=== PATIENT | female | born 1975 ===

== ENCOUNTER 2017-09-19 03:35 | Inpatient (IN) ==
[2017-09-19] MEDS ORDERED: POTASSIUM CHLORIDE INJ 30 MEQ in SODIUM CHLORIDE 0.45% 1,000 ML IV SCH (04:30)
[2017-09-19] MEDS ORDERED: SODIUM CHLORIDE 0.9% 500 ML IV STA (04:30)
[2017-09-19 05:09] LABS: Calcium 6.8 MG/DL (8.5-10.1); Magnesium 2.6 MG/DL (1.8-2.4); Osmolality,Calculated 291.1 MOS/KG (273-304)
[2017-09-19 05:11] LABS: Potassium 2.4 MMOL/L (3.5-5.1)
[2017-09-19] MEDS ORDERED: NOREPINEPHRINE 4 MG/4 ML VIAL IV ONE (05:24)
[2017-09-19] MEDS: NOREPINEPHRINE 8 MG in SODIUM CHLORIDE 0.9% 242 ML IV SCH (05:33)
[2017-09-19] MEDS ORDERED: POTASSIUM CHLORIDE 20 MEQ TABLET PO ONE ×3 (08:59→14:19)
[2017-09-19] MEDS ORDERED: CALCIUM GLUCONATE 2,000 MG in SODIUM CHLORIDE 0.9% 100 ML IV ONE (08:59)
[2017-09-19] MEDS ORDERED: ONDANSETRON 4 MG/2 ML VIAL IV PRN (08:59)
[2017-09-19] MEDS ORDERED: cefTRIAXone 1,000 MG in SYRINGE 1 EACH IV SCH (08:59)
[2017-09-19] MEDS ORDERED: GLUCAGON 1 MG VIAL IM PRN (08:59)
[2017-09-19] MEDS ORDERED: MORPHINE 2 MG/1 ML SYRINGE IV PRN (08:59)
[2017-09-19] MEDS ORDERED: DEXTROSE 50% 25 GM/50 ML VIAL IV PRN (08:59)
[2017-09-19 09:19] LABS: ABG HCO3 6.7 MMOL/L (20-26); ABG Oxygen Saturation 95.9 % (95-100); ABG TCO2 4.1 MMOL/L (23-27)
[2017-09-19 09:25] LABS: ABG PCO2 14.5 MM HG (35-48); ABG PH 7.066 (7.35-7.45)
[2017-09-19] MEDS ORDERED: MORPHINE 10 MG/1 ML VIAL IV PRN (09:30)
[2017-09-19] MEDS: DOCUSATE SODIUM 100 MG CAPSULE PO SCH ×2 (09:48→21:13)
[2017-09-19 10:00] LABS: Basophils # 0.2 10*3/uL (0.0-0.2); Basophils % 1.2 % (0.0-0.8); Eosinophils % 0.2 % (0.00-10.9); Hematocrit 25.4 VOL% (35.7-47.0); Hemoglobin 8.7 GM/DL (12.0-16.0); Immature Granulocytes % 0.8 %; Immature Granulocytes Absolute 0.14 #; Lymphocytes # 1.1 10*3/uL (1.4-4.0); Lymphocytes % 5.8 % (21.3-54.2); Mean Corpuscular HGB Conc 34.3 GM/DL (32-36); Mean Corpuscular Hemoglobin 27 PG (27-34); Mean Corpuscular Volume 79.4 FL (87-102); Mean Platelet Volume 10.9 FL (9.6-12.0); Monocytes # 0.7 10*3/uL (0.11-0.8); Monocytes % 3.9 % (1.7-12.7); NRBC # 0.04 10*3/uL; Neutrophils # 16.4 10*3/uL (1.4-7.4); Neutrophils % 88.1 % (38.7-73.9); Platelet Count 198 T/CUMM (130-400); Red Cell Distribution Width 18.9 % (9.3-17.3); White Blood Count 18.6 T/CUMM (4-12)
[2017-09-19] MEDS: PANTOPRAZOLE 40 MG VIAL IV SCH (10:10)
[2017-09-19 10:27] LABS: ABG Base Excess -23.2 MMOL/L (-2.5-2.5); ABG HCO3 5.7 MMOL/L (20-26); ABG Oxygen Saturation 52.9 % (95-100); ABG PCO2 21.8 MM HG (35-48); ABG PO2 48.6 MM HG (80-95); ABG TCO2 6.4 MMOL/L (23-27)
[2017-09-19] MEDS: ENOXAPARIN 30 MG/0.3 ML SYRINGE SUBCUT SCH (10:27)
[2017-09-19 10:29] LABS: ABG PH 7.038 (7.35-7.45)
[2017-09-19 10:30] LABS: Lactic Acid 4.2 MMOL/L (0.4-2.0)
[2017-09-19 10:31] LABS: Alanine Aminotransferase 19 U/L (13-56); Alkaline Phosphatase 261 U/L (45-117); Aspartate Amino Transferase 41 U/L (0-37); Bilirubin,Indirect 0.3 MG/DL (0.0-1.0); CKMB % 6.1 %; Troponin I Only < 0.015 NG/ML (0.00-0.045)
[2017-09-19 10:44] LABS: Ammonia 56 UMOL/L (11-32)
[2017-09-19] MEDS: cefTRIAXone 1,000 MG in SYRINGE 1 EACH IV SCH (12:25)
[2017-09-19] MEDS: INSULIN REGULAR 100 UNIT/ML SUBCUT SCH ×2 (12:25→19:23)
[2017-09-19 14:05] LABS: Magnesium 2.3 MG/DL (1.8-2.4); Osmolality,Calculated 291.2 MOS/KG (273-304)
[2017-09-19 14:15] LABS: Potassium 2.4 MMOL/L (3.5-5.1)
[2017-09-19] MEDS ORDERED: EPOETIN ALFA 10,000 UNIT/1 ML VIAL IV SCH (17:00)
[2017-09-19] MEDS: POTASSIUM CHLORIDE RIDER 20 MEQ in PREMIX 1 EACH IV PRN ×2 (20:35→22:15)
[2017-09-20] MEDS: POTASSIUM CHLORIDE RIDER 20 MEQ in PREMIX 1 EACH IV PRN ×3 (00:20→08:35)
[2017-09-20] MEDS: INSULIN REGULAR 100 UNIT/ML SUBCUT SCH ×4 (00:24→18:23)
[2017-09-20] MEDS: NOREPINEPHRINE 8 MG in SODIUM CHLORIDE 0.9% 242 ML IV SCH ×2 (00:50→15:01)
[2017-09-20 03:44] LABS: ABG Base Excess -2.6 MMOL/L (-2.5-2.5); ABG HCO3 22.6 MMOL/L (20-26); ABG Oxygen Saturation 89.7 % (95-100); ABG PCO2 40.8 MM HG (35-48); ABG PH 7.362 (7.35-7.45); ABG PO2 69.2 MM HG (80-95); ABG TCO2 23.9 MMOL/L (23-27); Allen Test Positive
[2017-09-20 04:52] LABS: Basophils # 0.2 10*3/uL (0.0-0.2); Eosinophils # 0.2 10*3/uL (0.0-0.87); Eosinophils % 1.1 % (0.00-10.9); Hematocrit 21.3 VOL% (35.7-47.0); Hemoglobin 7.2 GM/DL (12.0-16.0); Immature Granulocytes % 0.8 %; Immature Granulocytes Absolute 0.12 #; Lymphocytes # 1.7 10*3/uL (1.4-4.0); Lymphocytes % 11.9 % (21.3-54.2); Mean Corpuscular HGB Conc 33.8 GM/DL (32-36); Mean Corpuscular Hemoglobin 27 PG (27-34); Mean Corpuscular Volume 79.8 FL (87-102); Mean Platelet Volume 10.3 FL (9.6-12.0); Monocytes # 1.1 10*3/uL (0.11-0.8); Monocytes % 7.4 % (1.7-12.7); NRBC # 0.14 10*3/uL; Neutrophils # 11.2 10*3/uL (1.4-7.4); Neutrophils % 77.8 % (38.7-73.9); Platelet Count 180 T/CUMM (130-400); Red Blood Count 2.67 MC/CUMM (3.8-5.5); Red Cell Distribution Width 18.8 % (9.3-17.3); White Blood Count 14.4 T/CUMM (4-12)
[2017-09-20 05:15] LABS: Calcium 7.5 MG/DL (8.5-10.1); Osmolality,Calculated 281.4 MOS/KG (273-304); Potassium 3.4 MMOL/L (3.5-5.1)
[2017-09-20 05:25] LABS: Albumin 1.8 G/DL (3.4-5.0); Calcium 7.6 MG/DL (8.5-10.1); Osmolality,Calculated 280.4 MOS/KG (273-304); Potassium 3.5 MMOL/L (3.5-5.1)
[2017-09-20] MEDS: DOCUSATE SODIUM 100 MG CAPSULE PO SCH ×2 (08:34→21:25)
[2017-09-20] MEDS: ENOXAPARIN 30 MG/0.3 ML SYRINGE SUBCUT SCH (08:35)
[2017-09-20] MEDS: PANTOPRAZOLE 40 MG VIAL IV SCH (08:35)
[2017-09-20] MEDS ORDERED: SODIUM CHLORIDE 0.9% 1,000 ML IV PRN (10:31)
[2017-09-20 11:35] LABS: Hepatitis A Ab IgM Quant 0.11 Index; Hepatitis A Ab IgM Result Negative (Negative); Hepatitis B Core IgM Quant 0.11 Index; Hepatitis B Core IgM Result Negative (Negative); Hepatitis B Surface Ag Quant < 0.10 Index; Hepatitis B Surface Ag Result Negative (Negative); Hepatitis C Virus Ab Quant 0.22 Index; Hepatitis C Virus Ab Result Negative (Negative)
[2017-09-20] MEDS: POTASSIUM CHLORIDE RIDER 20 MEQ in PREMIX 1 EACH IV SCH (11:53)
[2017-09-20] MEDS: cefTRIAXone 1,000 MG in SYRINGE 1 EACH IV SCH (12:56)
[2017-09-20] MEDS ORDERED: SKIN HEALING OINT (AQUAPHOR) 50 GM TUBE TOP PRN (13:09)
[2017-09-21] MEDS: INSULIN REGULAR 100 UNIT/ML SUBCUT SCH ×4 (02:04→17:50)
[2017-09-21 05:43] LABS: Basophils # 0.3 10*3/uL (0.0-0.2); Basophils % 2.8 % (0.0-0.8); Eosinophils # 0.5 10*3/uL (0.0-0.87); Eosinophils % 5.3 % (0.00-10.9); Hematocrit 34.1 VOL% (35.7-47.0); Hemoglobin 11.2 GM/DL (12.0-16.0); Immature Granulocytes % 1.2 %; Immature Granulocytes Absolute 0.11 #; Lymphocytes # 1.8 10*3/uL (1.4-4.0); Lymphocytes % 19.5 % (21.3-54.2); Mean Corpuscular HGB Conc 32.8 GM/DL (32-36); Mean Corpuscular Hemoglobin 27 PG (27-34); Mean Corpuscular Volume 80.8 FL (87-102); Mean Platelet Volume 9.8 FL (9.6-12.0); Monocytes # 0.6 10*3/uL (0.11-0.8); Monocytes % 6.1 % (1.7-12.7); NRBC # 0.16 10*3/uL; Neutrophils # 6.1 10*3/uL (1.4-7.4); Neutrophils % 65.1 % (38.7-73.9); Platelet Count 155 T/CUMM (130-400); Red Blood Count 4.22 MC/CUMM (3.8-5.5); Red Cell Distribution Width 18.2 % (9.3-17.3); White Blood Count 9.3 T/CUMM (4-12)
[2017-09-21] MEDS: NOREPINEPHRINE 8 MG in SODIUM CHLORIDE 0.9% 242 ML IV SCH ×2 (06:14→12:34)
[2017-09-21 06:28] LABS: Calcium 8.1 MG/DL (8.5-10.1); Osmolality,Calculated 270.1 MOS/KG (273-304); Potassium 3.5 MMOL/L (3.5-5.1)
[2017-09-21 06:59] LABS: Band Neutrophils 1 % (0-10); Eosinophils 6 % (0-10); Lymphocytes 17 % (20-55); Nucleated Red Blood Cells 2 (0-5); Segmented Neutrophils 65 % (50-85); Total Cells Counted 100
[2017-09-21 07:00] LABS: Macrocytosis Slight; Platelet Estimate Normal; Polychromasia Few
[2017-09-21] MEDS: PANTOPRAZOLE 40 MG VIAL IV SCH (08:29)
[2017-09-21] MEDS: DOCUSATE SODIUM 100 MG CAPSULE PO SCH (08:37)
[2017-09-21] MEDS: ENOXAPARIN 30 MG/0.3 ML SYRINGE SUBCUT SCH (08:37)
[2017-09-21] MEDS: cefTRIAXone 1,000 MG in SYRINGE 1 EACH IV SCH (12:30)
[2017-09-21] MEDS ORDERED: EPOETIN ALFA 10,000 UNIT/1 ML VIAL IV ONE (13:00)
[2017-09-22] MEDS: DOCUSATE SODIUM 100 MG CAPSULE PO SCH ×3 (01:04→20:22)
[2017-09-22] MEDS: INSULIN REGULAR 100 UNIT/ML SUBCUT SCH ×4 (02:04→18:40)
[2017-09-22 06:02] LABS: Basophils # 0.2 10*3/uL (0.0-0.2); Basophils % 2.7 % (0.0-0.8); Eosinophils # 0.6 10*3/uL (0.0-0.87); Eosinophils % 7.4 % (0.00-10.9); Hematocrit 32.6 VOL% (35.7-47.0); Hemoglobin 10.9 GM/DL (12.0-16.0); Immature Granulocytes Absolute 0.15 #; Lymphocytes # 2.1 10*3/uL (1.4-4.0); Lymphocytes % 26.9 % (21.3-54.2); Mean Corpuscular HGB Conc 33.4 GM/DL (32-36); Mean Corpuscular Hemoglobin 27 PG (27-34); Mean Corpuscular Volume 80.5 FL (87-102); Mean Platelet Volume 10.4 FL (9.6-12.0); Monocytes # 0.7 10*3/uL (0.11-0.8); Monocytes % 8.6 % (1.7-12.7); NRBC # 0.26 10*3/uL; Neutrophils % 52.4 % (38.7-73.9); Platelet Count 133 T/CUMM (130-400); Red Blood Count 4.05 MC/CUMM (3.8-5.5); Red Cell Distribution Width 18.3 % (9.3-17.3); White Blood Count 7.7 T/CUMM (4-12)
[2017-09-22 06:24] LABS: Calcium 8.1 MG/DL (8.5-10.1); Osmolality,Calculated 271.8 MOS/KG (273-304)
[2017-09-22] MEDS: NOREPINEPHRINE 8 MG in SODIUM CHLORIDE 0.9% 242 ML IV SCH (06:32)
[2017-09-22 06:42] LABS: Band Neutrophils 1 % (0-10); Eosinophils 6 % (0-10); Giant Platelets Few; Hypochromasia 1+; Lymphocytes 19 % (20-55); Macrocytosis Slight; Ovalocytes Slight; Platelet Estimate Normal; Segmented Neutrophils 65 % (50-85); Total Cells Counted 100
[2017-09-22 06:43] LABS: Polychromasia Slight
[2017-09-22] MEDS: POTASSIUM CHLORIDE RIDER 20 MEQ in PREMIX 1 EACH IV PRN ×2 (08:17→10:27)
[2017-09-22] MEDS: PANTOPRAZOLE 40 MG VIAL IV SCH (08:17)
[2017-09-22] MEDS: ENOXAPARIN 30 MG/0.3 ML SYRINGE SUBCUT SCH (10:28)
[2017-09-22] MEDS: cefTRIAXone 1,000 MG in SYRINGE 1 EACH IV SCH (12:32)
[2017-09-23] MEDS: INSULIN REGULAR 100 UNIT/ML SUBCUT SCH ×5 (00:02→20:25)
[2017-09-23 05:13] LABS: Basophils # 0.2 10*3/uL (0.0-0.2); Basophils % 2.6 % (0.0-0.8); Eosinophils # 0.5 10*3/uL (0.0-0.87); Eosinophils % 7.5 % (0.00-10.9); Hemoglobin 9.6 GM/DL (12.0-16.0); Immature Granulocytes % 2.7 %; Immature Granulocytes Absolute 0.17 #; Lymphocytes % 32.2 % (21.3-54.2); Mean Corpuscular Hemoglobin 27 PG (27-34); Mean Corpuscular Volume 83.6 FL (87-102); Mean Platelet Volume 9.8 FL (9.6-12.0); Monocytes # 0.5 10*3/uL (0.11-0.8); Monocytes % 8.6 % (1.7-12.7); Neutrophils # 2.9 10*3/uL (1.4-7.4); Neutrophils % 46.4 % (38.7-73.9); Red Blood Count 3.59 MC/CUMM (3.8-5.5); Red Cell Distribution Width 18.2 % (9.3-17.3); White Blood Count 6.3 T/CUMM (4-12)
[2017-09-23 05:24] LABS: Platelet Count 109 T/CUMM (130-400)
[2017-09-23 05:38] LABS: Calcium 7.7 MG/DL (8.5-10.1); Osmolality,Calculated 272.8 MOS/KG (273-304); Potassium 3.1 MMOL/L (3.5-5.1)
[2017-09-23 05:50] LABS: Eosinophils 4 % (0-10); Lymphocytes 35 % (20-55); Nucleated Red Blood Cells 3 (0-5); Segmented Neutrophils 56 % (50-85); Total Cells Counted 100
[2017-09-23 05:51] LABS: Hypochromasia 1+; Platelet Estimate Decreased; Polychromasia Few; Target Cells Few
[2017-09-23] MEDS: NOREPINEPHRINE 8 MG in SODIUM CHLORIDE 0.9% 242 ML IV SCH (05:52)
[2017-09-23] MEDS: POTASSIUM CHLORIDE RIDER 20 MEQ in PREMIX 1 EACH IV PRN ×2 (06:00→08:00)
[2017-09-23] MEDS: PANTOPRAZOLE 40 MG VIAL IV SCH (09:45)
[2017-09-23] MEDS: DOCUSATE SODIUM 100 MG CAPSULE PO SCH ×2 (09:58→20:25)
[2017-09-23] MEDS: ENOXAPARIN 30 MG/0.3 ML SYRINGE SUBCUT SCH (09:58)
[2017-09-23] MEDS: cefTRIAXone 1,000 MG in SYRINGE 1 EACH IV SCH (13:03)
[2017-09-23] MEDS: INSULIN GLARGINE 100 UNIT/ML SUBCUT SCH (20:25)
[2017-09-23] MEDS: CALCIUM ACETATE 667 MG CAPSULE PO SCH (20:49)
[2017-09-24 06:12] LABS: Basophils # 0.2 10*3/uL (0.0-0.2); Basophils % 2.5 % (0.0-0.8); Eosinophils # 0.5 10*3/uL (0.0-0.87); Eosinophils % 7.1 % (0.00-10.9); Hematocrit 29.3 VOL% (35.7-47.0); Hemoglobin 9.2 GM/DL (12.0-16.0); Immature Granulocytes % 2.2 %; Immature Granulocytes Absolute 0.14 #; Lymphocytes # 2.3 10*3/uL (1.4-4.0); Lymphocytes % 35.1 % (21.3-54.2); Mean Corpuscular HGB Conc 31.4 GM/DL (32-36); Mean Corpuscular Hemoglobin 27 PG (27-34); Mean Corpuscular Volume 85.4 FL (87-102); Mean Platelet Volume 10.5 FL (9.6-12.0); Monocytes # 0.6 10*3/uL (0.11-0.8); Monocytes % 8.8 % (1.7-12.7); NRBC # 0.05 10*3/uL; Neutrophils # 2.9 10*3/uL (1.4-7.4); Neutrophils % 44.3 % (38.7-73.9); Platelet Count 94 T/CUMM (130-400); Red Blood Count 3.43 MC/CUMM (3.8-5.5); Red Cell Distribution Width 18.5 % (9.3-17.3); White Blood Count 6.5 T/CUMM (4-12)
[2017-09-24 06:29] LABS: Hypochromasia 1+; Microcytosis 1+; Ovalocytes Slight; Platelet Estimate Decreased
[2017-09-24 06:35] LABS: Calcium 7.6 MG/DL (8.5-10.1); Osmolality,Calculated 271.2 MOS/KG (273-304)
[2017-09-24] MEDS: NOREPINEPHRINE 8 MG in SODIUM CHLORIDE 0.9% 242 ML IV SCH (06:40)
[2017-09-24] MEDS: INSULIN REGULAR 100 UNIT/ML SUBCUT SCH ×4 (08:46→20:34)
[2017-09-24] MEDS: CALCIUM ACETATE 667 MG CAPSULE PO SCH ×3 (11:17→17:57)
[2017-09-24] MEDS: DOCUSATE SODIUM 100 MG CAPSULE PO SCH ×2 (11:19→20:33)
[2017-09-24] MEDS: cefTRIAXone 1,000 MG in SYRINGE 1 EACH IV SCH ×2 (12:58→13:22)
[2017-09-24] MEDS: ENOXAPARIN 30 MG/0.3 ML SYRINGE SUBCUT SCH (13:00)
[2017-09-24] MEDS: PANTOPRAZOLE 40 MG VIAL IV SCH (13:02)
[2017-09-24] MEDS: INSULIN GLARGINE 100 UNIT/ML SUBCUT SCH (20:33)
[2017-09-25 06:53] LABS: Calcium 7.3 MG/DL (8.5-10.1); Osmolality,Calculated 265.4 MOS/KG (273-304); Potassium 3.9 MMOL/L (3.5-5.1)
[2017-09-25] MEDS: INSULIN REGULAR 100 UNIT/ML SUBCUT SCH ×3 (08:17→17:05)
[2017-09-25] MEDS: DOCUSATE SODIUM 100 MG CAPSULE PO SCH (10:06)
[2017-09-25] MEDS: CALCIUM ACETATE 667 MG CAPSULE PO SCH ×3 (10:06→17:10)
[2017-09-25] MEDS: ENOXAPARIN 30 MG/0.3 ML SYRINGE SUBCUT SCH (10:07)
[2017-09-25] MEDS: PANTOPRAZOLE 40 MG VIAL IV SCH (10:08)
[2017-09-25] MEDS: cefTRIAXone 1,000 MG in SYRINGE 1 EACH IV SCH (11:46)
[2017-09-25 16:13] VITALS: BP 93/46
== END 2017-09-25 17:05 | disposition home or self-care (01) | DRG 871 ==
LOC: EDUNIT# → EDBD → N.ED 03:35 → N.EDINP 05:39 → SUATTDRO 05:39 → N.CC 08:30 → N.4E 09-24 12:48
PROVIDERS: ATTEND Internal Medicine

== ENCOUNTER 2018-05-01 10:19 | Inpatient (IN) ==
[2018-05-01] MEDS ORDERED: NALOXONE 0.4 MG/ML VIAL ONE (11:00)
[2018-05-01] MEDS ORDERED: NOREPINEPHRINE 4 MG/4 ML VIAL IV ONE ×2 (11:00→14:16)
[2018-05-01] MEDS ORDERED: NOREPINEPHRINE 8 MG in SODIUM CHLORIDE 0.9% 242 ML IV PRN (11:08)
[2018-05-01] MEDS ORDERED: NALOXONE 0.4 MG/ML VIAL IV STA (11:08)
[2018-05-01] MEDS ORDERED: GLUCAGON 1 MG VIAL IM PRN (12:58)
[2018-05-01] MEDS ORDERED: ACETAMINOPHEN 325 MG TABLET PO PRN (12:58)
[2018-05-01] MEDS ORDERED: ONDANSETRON 4 MG/2 ML VIAL IV PRN (12:58)
[2018-05-01] MEDS: PIPERACILLIN/TAZOBACTAM 3,375 MG in SODIUM CHLORIDE 0.9% 100 ML IV SCH (13:20)
[2018-05-01] MEDS: PANTOPRAZOLE 40 MG TABLET PO SCH (13:21)
[2018-05-01 13:25] LABS: Basophils # 0.1 10*3/uL (0.0-0.2); Basophils % 0.6 % (0.0-0.8); Eosinophils % 0.1 % (0.00-10.9); Hematocrit 26.6 VOL% (35.7-47.0); Hemoglobin 9.1 GM/DL (12.0-16.0); Immature Granulocytes % 0.9 %; Immature Granulocytes Absolute 0.14 #; Lymphocytes # 0.6 10*3/uL (1.4-4.0); Mean Corpuscular HGB Conc 34.2 GM/DL (32-36); Mean Corpuscular Hemoglobin 25 PG (27-34); Mean Corpuscular Volume 73.9 FL (87-102); Mean Platelet Volume 9.2 FL (9.6-12.0); Monocytes # 0.6 10*3/uL (0.11-0.8); Monocytes % 4.1 % (1.7-12.7); Neutrophils # 13.8 10*3/uL (1.4-7.4); Neutrophils % 90.3 % (38.7-73.9); Platelet Count 162 T/CUMM (130-400); Red Cell Distribution Width 18.1 % (9.3-17.3); White Blood Count 15.3 T/CUMM (4-12)
[2018-05-01 13:39] LABS: Lactic Acid 0.8 MMOL/L (0.4-2.0)
[2018-05-01 13:44] LABS: Albumin 1.7 G/DL (3.4-5.0); Bilirubin,Total 0.7 MG/DL (0.2-1.0); Calcium 6.7 MG/DL (8.5-10.1); Osmolality,Calculated 307.4 MOS/KG (273-304); Total Protein 7.2 G/DL (6.4-8.3)
[2018-05-01 13:46] LABS: Potassium 2.4 MMOL/L (3.5-5.1)
[2018-05-01] MEDS ORDERED: POTASSIUM CHLORIDE 20 MEQ TABLET PO STA (13:56)
[2018-05-01] MEDS ORDERED: POTASSIUM CHLORIDE 20 MEQ TABLET PO ONE ×3 (13:59→21:20)
[2018-05-01] MEDS ORDERED: PIPERACILLIN/TAZOBACTAM 3,375 MG in SODIUM CHLORIDE 0.9% 100 ML IV SCH (14:00)
[2018-05-01] MEDS ORDERED: POTASSIUM CHLORIDE 10 MEQ TABLET PO ONE (14:01)
[2018-05-01] MEDS ORDERED: VANCOMYCIN INJ 500 MG in SODIUM CHLORIDE 0.9% 100 ML IV PRN (14:31)
[2018-05-01] MEDS ORDERED: LIDOCAINE 2% 20 ML VIAL ONE (14:55)
[2018-05-01] MEDS ORDERED: EPOETIN ALFA 10,000 UNIT/1 ML VIAL IV PRN (15:07)
[2018-05-01 15:40] LABS: % Iron Saturation 86.9 % (18-50)
[2018-05-01] MEDS ORDERED: VANCOMYCIN INJ 1,250 MG in SODIUM CHLORIDE 0.9% 250 ML IV ONE (17:00)
[2018-05-01 17:08] LABS: Lymphocytes 5 % (20-55); Platelet Estimate Adequate; Segmented Neutrophils 92 % (50-85); Total Cells Counted 100
[2018-05-01 17:09] LABS: Polychromasia Few
[2018-05-01] MEDS: INSULIN REGULAR 100 UNIT/ML SUBCUT SCH ×2 (17:17→20:31)
[2018-05-01] MEDS ORDERED: HEPARIN 10,000 UNIT/10 ML VIAL IV SCH (20:00)
[2018-05-01] MEDS: DEXTROSE 50% 25 GM/50 ML VIAL IV PRN (20:05)
[2018-05-01] MEDS: ENOXAPARIN 30 MG/0.3 ML SYRINGE SUBCUT SCH (21:50)
[2018-05-02] MEDS: DEXTROSE 50% 25 GM/50 ML VIAL IV PRN ×3 (00:42→08:53)
[2018-05-02] MEDS: PIPERACILLIN/TAZOBACTAM 3,375 MG in SODIUM CHLORIDE 0.9% 100 ML IV SCH ×2 (02:21→15:04)
[2018-05-02 05:37] LABS: Albumin 1.4 G/DL (3.4-5.0); Calcium 6.6 MG/DL (8.5-10.1); Osmolality,Calculated 291.5 MOS/KG (273-304)
[2018-05-02 06:01] LABS: Potassium 2.5 MMOL/L (3.5-5.1)
[2018-05-02] MEDS: INSULIN REGULAR 100 UNIT/ML SUBCUT SCH ×4 (08:27→20:13)
[2018-05-02] MEDS ORDERED: ALBUMIN 25% 25 GM in PREMIX 1 EACH IV ONE (10:30)
[2018-05-02] MEDS: PANTOPRAZOLE 40 MG TABLET PO SCH (10:36)
[2018-05-02] MEDS: POTASSIUM CHLORIDE 20 MEQ TABLET PO SCH ×2 (10:36→10:55)
[2018-05-02] MEDS: POTASSIUM CHLORIDE 20 MEQ/15 ML UDCUP PO SCH ×2 (11:05→15:12)
[2018-05-02] MEDS ORDERED: VANCOMYCIN INJ 500 MG in SODIUM CHLORIDE 0.9% 100 ML IV ONE (15:00)
[2018-05-02] MEDS: POTASSIUM CHLORIDE RIDER 10 MEQ in PREMIX 1 EACH IV PRN ×5 (15:04→20:21)
[2018-05-02] MEDS: ZINC OXIDE PASTE 113 GM TUBE TOP SCH ×2 (16:58→20:20)
[2018-05-02] MEDS: ENOXAPARIN 30 MG/0.3 ML SYRINGE SUBCUT SCH (20:20)
[2018-05-03] MEDS: POTASSIUM CHLORIDE RIDER 10 MEQ in PREMIX 1 EACH IV PRN ×4 (01:00→04:05)
[2018-05-03] MEDS: PIPERACILLIN/TAZOBACTAM 3,375 MG in SODIUM CHLORIDE 0.9% 100 ML IV SCH ×2 (03:05→13:01)
[2018-05-03 05:45] LABS: Basophils # 0.1 10*3/uL (0.0-0.2); Basophils % 1.1 % (0.0-0.8); Eosinophils # 0.4 10*3/uL (0.0-0.87); Eosinophils % 4.6 % (0.00-10.9); Hematocrit 23.6 VOL% (35.7-47.0); Hemoglobin 7.7 GM/DL (12.0-16.0); Immature Granulocytes % 0.6 %; Immature Granulocytes Absolute 0.05 #; Lymphocytes % 11.3 % (21.3-54.2); Mean Corpuscular HGB Conc 32.6 GM/DL (32-36); Mean Corpuscular Hemoglobin 25 PG (27-34); Mean Corpuscular Volume 77.6 FL (87-102); Mean Platelet Volume 9.2 FL (9.6-12.0); Monocytes # 0.5 10*3/uL (0.11-0.8); Monocytes % 5.4 % (1.7-12.7); Neutrophils # 6.5 10*3/uL (1.4-7.4); Platelet Count 127 T/CUMM (130-400); Red Blood Count 3.04 MC/CUMM (3.8-5.5); Red Cell Distribution Width 18.4 % (9.3-17.3); White Blood Count 8.5 T/CUMM (4-12)
[2018-05-03 06:15] LABS: Albumin 1.8 G/DL (3.4-5.0); Calcium 7.3 MG/DL (8.5-10.1); Osmolality,Calculated 280.8 MOS/KG (273-304); Potassium 4.1 MMOL/L (3.5-5.1)
[2018-05-03] MEDS ORDERED: SODIUM CHLORIDE 0.9% 1,000 ML IV PRN ×2 (08:21→08:53)
[2018-05-03] MEDS ORDERED: LOPERAMIDE 2 MG CAPSULE PO PRN (08:25)
[2018-05-03] MEDS: ZINC OXIDE PASTE 113 GM TUBE TOP SCH ×2 (08:36→22:26)
[2018-05-03] MEDS: INSULIN REGULAR 100 UNIT/ML SUBCUT SCH ×4 (08:36→22:29)
[2018-05-03] MEDS: PANTOPRAZOLE 40 MG TABLET PO SCH (08:36)
[2018-05-03] MEDS ORDERED: PNEUMOCOCCAL VACCINE (13 VALENT) 0.5 ML SYRINGE IM ONE (09:00)
[2018-05-03 16:21] LABS: Hematocrit 27.9 VOL% (35.7-47.0); Hemoglobin 9.1 GM/DL (12.0-16.0)
[2018-05-03] MEDS: ENOXAPARIN 30 MG/0.3 ML SYRINGE SUBCUT SCH (22:26)
[2018-05-04] MEDS: PIPERACILLIN/TAZOBACTAM 3,375 MG in SODIUM CHLORIDE 0.9% 100 ML IV SCH (03:00)
[2018-05-04 05:52] LABS: Basophils # 0.1 10*3/uL (0.0-0.2); Basophils % 0.7 % (0.0-0.8); Eosinophils # 0.7 10*3/uL (0.0-0.87); Eosinophils % 8.5 % (0.00-10.9); Hematocrit 26.7 VOL% (35.7-47.0); Hemoglobin 8.6 GM/DL (12.0-16.0); Immature Granulocytes % 0.6 %; Immature Granulocytes Absolute 0.05 #; Lymphocytes # 1.1 10*3/uL (1.4-4.0); Lymphocytes % 12.9 % (21.3-54.2); Mean Corpuscular HGB Conc 32.2 GM/DL (32-36); Mean Corpuscular Hemoglobin 25 PG (27-34); Mean Corpuscular Volume 78.1 FL (87-102); Mean Platelet Volume 9.2 FL (9.6-12.0); Monocytes # 0.6 10*3/uL (0.11-0.8); Monocytes % 6.6 % (1.7-12.7); Neutrophils # 5.9 10*3/uL (1.4-7.4); Neutrophils % 70.7 % (38.7-73.9); Platelet Count 121 T/CUMM (130-400); Red Blood Count 3.42 MC/CUMM (3.8-5.5); Red Cell Distribution Width 18.3 % (9.3-17.3); White Blood Count 8.3 T/CUMM (4-12)
[2018-05-04 06:20] LABS: Albumin 1.8 G/DL (3.4-5.0); Calcium 7.4 MG/DL (8.5-10.1); Osmolality,Calculated 277.8 MOS/KG (273-304)
[2018-05-04] MEDS ORDERED: traMADol 50 MG TABLET PO PRN (08:33)
[2018-05-04] MEDS ORDERED: SKIN HEALING OINT (AQUAPHOR) 50 GM TUBE TOP PRN (08:33)
[2018-05-04] MEDS ORDERED: ASPIRIN EC 325 MG TABLET PO SCH (09:00)
[2018-05-04] MEDS ORDERED: SULFAMETHOX/TRIMETHOPRIM 400-80 MG TABLET PO SCH (09:00)
[2018-05-04] MEDS ORDERED: MUPIROCIN 2% OINT 22 GM TUBE TOP SCH (09:00)
[2018-05-04] MEDS ORDERED: CALCIUM ACETATE 667 MG CAPSULE PO SCH ×2 (09:00→12:00)
[2018-05-04] MEDS: INSULIN REGULAR 100 UNIT/ML SUBCUT SCH ×2 (09:25→12:08)
[2018-05-04] MEDS: ZINC OXIDE PASTE 113 GM TUBE TOP SCH (09:26)
[2018-05-04 12:39] VITALS: BP 117/60
== END 2018-05-04 15:55 | disposition home or self-care (01) | DRG 640 ==
LOC: EDUNIT# → EDBD → N.ED 10:19 → SUATTDRO 12:59 → N.EDINP 12:59 → N.ICU 13:57 → N.5E 05-03 16:47
PROVIDERS: ADMIT Internal Medicine Geriatric Medicine; ATTEND Hospitalist

== ENCOUNTER 2018-05-12 15:58 | Inpatient (IN) ==
[2018-05-12] MEDS ORDERED: DEXTROSE 50% 25 GM/50 ML VIAL IV STA (16:23)
[2018-05-12] MEDS ORDERED: DEXTROSE 50% 25 GM/50 ML SYRINGE IV ONE (16:25)
[2018-05-12] MEDS ORDERED: NOREPINEPHRINE 16 MG in SODIUM CHLORIDE 0.9% 234 ML IV PRN (16:35)
[2018-05-12] MEDS ORDERED: NOREPINEPHRINE 4 MG/4 ML VIAL IV ONE (16:37)
[2018-05-12 17:01] LABS: Basophils # 0.1 10*3/uL (0.0-0.2); Basophils % 0.8 % (0.0-0.8); Eosinophils # 0.3 10*3/uL (0.0-0.87); Eosinophils % 1.8 % (0.00-10.9); Hematocrit 18.4 VOL% (35.7-47.0); Immature Granulocytes % 0.7 %; Lymphocytes # 1.3 10*3/uL (1.4-4.0); Lymphocytes % 8.6 % (21.3-54.2); Mean Corpuscular HGB Conc 32.6 GM/DL (32-36); Mean Corpuscular Hemoglobin 26 PG (27-34); Mean Corpuscular Volume 80.7 FL (87-102); Monocytes # 0.7 10*3/uL (0.11-0.8); Monocytes % 4.4 % (1.7-12.7); NRBC # 0.02 10*3/uL; Neutrophils # 12.3 10*3/uL (1.4-7.4); Neutrophils % 83.7 % (38.7-73.9); Platelet Count 125 T/CUMM (130-400); Red Blood Count 2.28 MC/CUMM (3.8-5.5); Red Cell Distribution Width 19.7 % (9.3-17.3); White Blood Count 14.7 T/CUMM (4-12)
[2018-05-12] MEDS: NOREPINEPHRINE 8 MG in SODIUM CHLORIDE 0.9% 242 ML IV PRN (17:01)
[2018-05-12] MEDS ORDERED: MORPHINE 4 MG/1 ML VIAL IV PRN (17:14)
[2018-05-12] MEDS ORDERED: ALBUTEROL 2.5 MG/3 ML NEB RESP TX PRN (17:14)
[2018-05-12] MEDS ORDERED: ONDANSETRON 4 MG/2 ML VIAL IV PRN (17:14)
[2018-05-12] MEDS ORDERED: GLUCAGON 1 MG VIAL IM PRN (17:14)
[2018-05-12] MEDS ORDERED: VANCOMYCIN INJ 1,000 MG in SODIUM CHLORIDE 0.9% 250 ML IV ONE (17:29)
[2018-05-12] MEDS ORDERED: SODIUM CHLORIDE 0.9% 1,000 ML IV SCH (17:30)
[2018-05-12 17:31] LABS: Albumin 1.7 G/DL (3.4-5.0); Bilirubin,Total 0.5 MG/DL (0.2-1.0); Calcium 6.9 MG/DL (8.5-10.1); Potassium 3.4 MMOL/L (3.5-5.1); Total Protein 6.6 G/DL (6.4-8.3)
[2018-05-12 17:39] LABS: Lactic Acid 0.7 MMOL/L (0.4-2.0)
[2018-05-12] MEDS ORDERED: VANCOMYCIN INJ 400 MG in SODIUM CHLORIDE 0.9% 100 ML IV PRN (19:46)
[2018-05-12] MEDS: ALBUTEROL/IPRATROPIUM 3 ML NEB RESP TX SCH (19:52)
[2018-05-12] MEDS ORDERED: EPOETIN ALFA 10,000 UNIT/1 ML VIAL IV PRN (19:53)
[2018-05-12] MEDS ORDERED: traMADol 50 MG TABLET PO PRN (19:53)
[2018-05-12] MEDS ORDERED: HEPARIN 10,000 UNIT/10 ML VIAL IV SCH (19:53)
[2018-05-12] MEDS ORDERED: CALCIUM ACETATE 667 MG CAPSULE PO SCH (19:53)
[2018-05-12] MEDS: INSULIN LISPRO 100 UNIT/ML SUBCUT SCH (20:47)
[2018-05-12] MEDS ORDERED: VANCOMYCIN INJ 250 MG in SODIUM CHLORIDE 0.9% 100 ML IV ONE (21:00)
[2018-05-12] MEDS: PIPERACILLIN/TAZOBACTAM 3,375 MG in SODIUM CHLORIDE 0.9% 100 ML IV SCH (22:06)
[2018-05-13] MEDS: ALBUTEROL/IPRATROPIUM 3 ML NEB RESP TX SCH ×4 (01:00→18:51)
[2018-05-13 05:19] LABS: Basophils # 0.1 10*3/uL (0.0-0.2); Basophils % 0.7 % (0.0-0.8); Eosinophils # 0.2 10*3/uL (0.0-0.87); Eosinophils % 0.8 % (0.00-10.9); Hematocrit 18.7 VOL% (35.7-47.0); Immature Granulocytes % 1.1 %; Immature Granulocytes Absolute 0.21 #; Lymphocytes # 1.1 10*3/uL (1.4-4.0); Lymphocytes % 5.4 % (21.3-54.2); Mean Corpuscular HGB Conc 33.2 GM/DL (32-36); Mean Corpuscular Hemoglobin 26 PG (27-34); Mean Corpuscular Volume 79.2 FL (87-102); Mean Platelet Volume 9.5 FL (9.6-12.0); Monocytes # 0.7 10*3/uL (0.11-0.8); Monocytes % 3.4 % (1.7-12.7); NRBC # 0.03 10*3/uL; Neutrophils # 17.3 10*3/uL (1.4-7.4); Neutrophils % 88.6 % (38.7-73.9); Platelet Count 143 T/CUMM (130-400); Red Blood Count 2.36 MC/CUMM (3.8-5.5); Red Cell Distribution Width 19.8 % (9.3-17.3); White Blood Count 19.6 T/CUMM (4-12)
[2018-05-13 05:32] LABS: Hemoglobin 6.2 GM/DL (12.0-16.0)
[2018-05-13 05:39] LABS: Albumin 1.8 G/DL (3.4-5.0); Bilirubin,Total 0.6 MG/DL (0.2-1.0); Calcium 7.6 MG/DL (8.5-10.1); Osmolality,Calculated 302.5 MOS/KG (273-304); Potassium 3.2 MMOL/L (3.5-5.1); Total Protein 7.1 G/DL (6.4-8.3)
[2018-05-13 05:42] LABS: Elliptocytes Few; Hypochromasia 1+
[2018-05-13 05:43] LABS: Burr Cells Slight
[2018-05-13] MEDS: DEXTROSE 50% 25 GM/50 ML VIAL IV PRN ×2 (07:59→12:03)
[2018-05-13] MEDS: INSULIN LISPRO 100 UNIT/ML SUBCUT SCH ×4 (08:23→20:01)
[2018-05-13] MEDS ORDERED: SODIUM CHLORIDE 0.9% 1,000 ML IV PRN (09:58)
[2018-05-13] MEDS: NOREPINEPHRINE 8 MG in SODIUM CHLORIDE 0.9% 242 ML IV PRN (10:50)
[2018-05-13] MEDS: CALCIUM ACETATE 667 MG CAPSULE PO SCH ×3 (11:17→17:20)
[2018-05-13] MEDS: ASPIRIN EC 325 MG TABLET PO SCH (11:18)
[2018-05-13] MEDS: PANTOPRAZOLE 40 MG TABLET PO SCH (11:19)
[2018-05-13] MEDS: PIPERACILLIN/TAZOBACTAM 3,375 MG in SODIUM CHLORIDE 0.9% 100 ML IV SCH ×2 (12:43→21:40)
[2018-05-13] MEDS: DEXTROSE 10% 1,000 ML IV SCH (13:13)
[2018-05-13] MEDS ORDERED: VANCOMYCIN INJ 400 MG in SODIUM CHLORIDE 0.9% 100 ML IV ONE (16:00)
[2018-05-13] MEDS ORDERED: ACETAMINOPHEN 650 MG SUPP RECTAL PRN (17:00)
[2018-05-14] MEDS: NOREPINEPHRINE 8 MG in SODIUM CHLORIDE 0.9% 242 ML IV PRN ×2 (00:10→12:50)
[2018-05-14] MEDS: ALBUTEROL/IPRATROPIUM 3 ML NEB RESP TX SCH ×4 (00:39→19:04)
[2018-05-14 05:52] LABS: Basophils # 0.2 10*3/uL (0.0-0.2); Basophils % 1.3 % (0.0-0.8); Eosinophils # 0.6 10*3/uL (0.0-0.87); Eosinophils % 3.7 % (0.00-10.9); Hematocrit 27.4 VOL% (35.7-47.0); Hemoglobin 9.4 GM/DL (12.0-16.0); Immature Granulocytes % 0.6 %; Immature Granulocytes Absolute 0.09 #; Lymphocytes # 0.9 10*3/uL (1.4-4.0); Lymphocytes % 6.3 % (21.3-54.2); Mean Corpuscular HGB Conc 34.3 GM/DL (32-36); Mean Corpuscular Hemoglobin 27 PG (27-34); Mean Corpuscular Volume 79.9 FL (87-102); Mean Platelet Volume 9.8 FL (9.6-12.0); Monocytes # 0.6 10*3/uL (0.11-0.8); Monocytes % 4.3 % (1.7-12.7); Neutrophils # 12.3 10*3/uL (1.4-7.4); Neutrophils % 83.8 % (38.7-73.9); Platelet Count 146 T/CUMM (130-400); Red Blood Count 3.43 MC/CUMM (3.8-5.5); Red Cell Distribution Width 18.6 % (9.3-17.3); White Blood Count 14.7 T/CUMM (4-12)
[2018-05-14 06:21] LABS: Albumin 1.5 G/DL (3.4-5.0); Bilirubin,Total 1.2 MG/DL (0.2-1.0); Calcium 7.2 MG/DL (8.5-10.1); Total Protein 6.3 G/DL (6.4-8.3)
[2018-05-14 06:24] LABS: Potassium 2.5 MMOL/L (3.5-5.1)
[2018-05-14] MEDS: POTASSIUM CHLORIDE RIDER 10 MEQ in PREMIX 1 EACH IV PRN ×8 (06:26→18:07)
[2018-05-14] MEDS: INSULIN LISPRO 100 UNIT/ML SUBCUT SCH ×4 (08:21→20:44)
[2018-05-14] MEDS: ASPIRIN EC 325 MG TABLET PO SCH (08:55)
[2018-05-14] MEDS: PANTOPRAZOLE 40 MG TABLET PO SCH (08:55)
[2018-05-14] MEDS: CALCIUM ACETATE 667 MG CAPSULE PO SCH ×3 (08:55→17:27)
[2018-05-14] MEDS: PIPERACILLIN/TAZOBACTAM 3,375 MG in SODIUM CHLORIDE 0.9% 100 ML IV SCH ×2 (09:47→21:07)
[2018-05-14] MEDS: DEXTROSE 10% 1,000 ML IV SCH (13:06)
[2018-05-15] MEDS: ALBUTEROL/IPRATROPIUM 3 ML NEB RESP TX SCH ×4 (01:29→19:29)
[2018-05-15] MEDS: INSULIN LISPRO 100 UNIT/ML SUBCUT SCH ×4 (07:50→20:54)
[2018-05-15] MEDS: DEXTROSE 50% 25 GM/50 ML VIAL IV PRN (07:51)
[2018-05-15] MEDS: DEXTROSE 10% 1,000 ML IV SCH ×2 (07:52→15:57)
[2018-05-15 09:06] LABS: Basophils # 0.1 10*3/uL (0.0-0.2); Basophils % 0.9 % (0.0-0.8); Eosinophils # 0.8 10*3/uL (0.0-0.87); Eosinophils % 7.8 % (0.00-10.9); Hematocrit 23.1 VOL% (35.7-47.0); Hemoglobin 7.8 GM/DL (12.0-16.0); Immature Granulocytes % 0.6 %; Immature Granulocytes Absolute 0.06 #; Lymphocytes # 1.1 10*3/uL (1.4-4.0); Mean Corpuscular HGB Conc 33.8 GM/DL (32-36); Mean Corpuscular Hemoglobin 28 PG (27-34); Mean Corpuscular Volume 82.2 FL (87-102); Mean Platelet Volume 9.1 FL (9.6-12.0); Monocytes # 0.4 10*3/uL (0.11-0.8); Monocytes % 4.2 % (1.7-12.7); NRBC # 0.02 10*3/uL; Neutrophils # 7.6 10*3/uL (1.4-7.4); Neutrophils % 75.5 % (38.7-73.9); Platelet Count 117 T/CUMM (130-400); Red Blood Count 2.81 MC/CUMM (3.8-5.5); Red Cell Distribution Width 18.7 % (9.3-17.3); White Blood Count 10.1 T/CUMM (4-12)
[2018-05-15] MEDS: ASPIRIN EC 325 MG TABLET PO SCH (09:22)
[2018-05-15] MEDS: CALCIUM ACETATE 667 MG CAPSULE PO SCH ×3 (09:22→16:39)
[2018-05-15] MEDS: PANTOPRAZOLE 40 MG TABLET PO SCH (09:22)
[2018-05-15 09:25] LABS: Albumin 1.4 G/DL (3.4-5.0); Bilirubin,Total 0.8 MG/DL (0.2-1.0); Calcium 7.1 MG/DL (8.5-10.1); Potassium 3.2 MMOL/L (3.5-5.1); Total Protein 5.9 G/DL (6.4-8.3)
[2018-05-15 10:15] LABS: Polychromasia Slight
[2018-05-15 10:16] LABS: Hypochromasia 1+
[2018-05-15 10:17] LABS: Spherocytes Slight
[2018-05-15 10:20] LABS: Basophilic Stippling Few; Platelet Estimate Decreased
[2018-05-15] MEDS: NOREPINEPHRINE 8 MG in SODIUM CHLORIDE 0.9% 242 ML IV PRN (11:05)
[2018-05-15] MEDS: PIPERACILLIN/TAZOBACTAM 3,375 MG in SODIUM CHLORIDE 0.9% 100 ML IV SCH ×2 (11:06→21:10)
[2018-05-15] MEDS ORDERED: VANCOMYCIN INJ 400 MG in SODIUM CHLORIDE 0.9% 100 ML IV ONE (14:00)
[2018-05-15] MEDS: POTASSIUM CHLORIDE 20 MEQ TABLET PO PRN (16:39)
[2018-05-16] MEDS: ALBUTEROL/IPRATROPIUM 3 ML NEB RESP TX SCH ×3 (02:12→13:38)
[2018-05-16 04:58] LABS: Calcium 7.6 MG/DL (8.5-10.1); Osmolality,Calculated 269.1 MOS/KG (273-304); Potassium 3.1 MMOL/L (3.5-5.1); Prealbumin 3.2 MG/DL (20-40)
[2018-05-16] MEDS: POTASSIUM CHLORIDE 20 MEQ TABLET PO PRN (05:24)
[2018-05-16] MEDS: DEXTROSE 10% 1,000 ML IV SCH ×2 (05:26→17:21)
[2018-05-16] MEDS: INSULIN LISPRO 100 UNIT/ML SUBCUT SCH ×2 (07:31→11:48)
[2018-05-16] MEDS: CALCIUM ACETATE 667 MG CAPSULE PO SCH (08:41)
[2018-05-16] MEDS: PANTOPRAZOLE 40 MG TABLET PO SCH (08:41)
[2018-05-16] MEDS: ASPIRIN EC 325 MG TABLET PO SCH (08:41)
[2018-05-16] MEDS: PIPERACILLIN/TAZOBACTAM 3,375 MG in SODIUM CHLORIDE 0.9% 100 ML IV SCH (10:54)
[2018-05-16] MEDS ORDERED: ZINC OXIDE PASTE 113 GM TUBE TOP SCH (12:30)
[2018-05-16 12:51] LABS: Hematocrit 28.6 VOL% (35.7-47.0); Hemoglobin 9.8 GM/DL (12.0-16.0)
[2018-05-16 13:20] VITALS: BP 110/58
== END 2018-05-16 17:05 | disposition home or self-care (01) | DRG 871 ==
LOC: EDBD → EDUNIT# → N.ED 15:58 → N.EDINP 16:31 → N.ICU 18:51
PROVIDERS: ADMIT Hospitalist; ATTEND Hospitalist

== ENCOUNTER 2018-06-18 02:02 | Inpatient (IN) ==
[2018-06-18] MEDS ORDERED: VANCOMYCIN INJ 750 MG in SODIUM CHLORIDE 0.9% 250 ML IV STA (03:03)
[2018-06-18] MEDS ORDERED: CEFEPIME 1,000 MG in SODIUM CHLORIDE 0.9% 100 ML IV STA (03:03)
[2018-06-18] MEDS ORDERED: NOREPINEPHRINE 4 MG/4 ML VIAL IV ONE (03:09)
[2018-06-18] MEDS ORDERED: MORPHINE 4 MG/1 ML VIAL IM STA (03:10)
[2018-06-18 03:15] LABS: Basophils # 0.2 10*3/uL (0.0-0.2); Basophils % 1.5 % (0.0-0.8); Eosinophils # 0.4 10*3/uL (0.0-0.87); Hematocrit 21.9 VOL% (35.7-47.0); Hemoglobin 7.1 GM/DL (12.0-16.0); Immature Granulocytes % 0.5 %; Immature Granulocytes Absolute 0.07 #; Lymphocytes # 2.7 10*3/uL (1.4-4.0); Lymphocytes % 19.8 % (21.3-54.2); Mean Corpuscular HGB Conc 32.4 GM/DL (32-36); Mean Corpuscular Hemoglobin 28 PG (27-34); Mean Corpuscular Volume 86.9 FL (87-102); Mean Platelet Volume 9.3 FL (9.6-12.0); Monocytes # 0.8 10*3/uL (0.11-0.8); Monocytes % 6.2 % (1.7-12.7); Neutrophils # 9.4 10*3/uL (1.4-7.4); Platelet Count 160 T/CUMM (130-400); Red Blood Count 2.52 MC/CUMM (3.8-5.5); Red Cell Distribution Width 19.7 % (9.3-17.3); White Blood Count 13.6 T/CUMM (4-12)
[2018-06-18] MEDS: NOREPINEPHRINE 8 MG in SODIUM CHLORIDE 0.9% 242 ML IV PRN ×2 (03:25→14:51)
[2018-06-18 03:29] LABS: Lactic Acid 0.8 MMOL/L (0.4-2.0)
[2018-06-18] MEDS ORDERED: SODIUM CHLORIDE 0.9% 1,000 ML IV STA (03:30)
[2018-06-18 03:35] LABS: Bilirubin,Total 0.7 MG/DL (0.2-1.0); Calcium 6.4 MG/DL (8.5-10.1); Osmolality,Calculated 273.1 MOS/KG (273-304); Potassium 3.4 MMOL/L (3.5-5.1); Total Protein 8.5 G/DL (6.4-8.3)
[2018-06-18] MEDS ORDERED: HYDROmorphone 2 MG/1 ML VIAL IV STA (04:18)
[2018-06-18] MEDS ORDERED: ONDANSETRON 4 MG/2 ML VIAL IV PRN (05:28)
[2018-06-18] MEDS ORDERED: ALBUTEROL 2.5 MG/3 ML NEB RESP TX PRN (05:28)
[2018-06-18] MEDS ORDERED: ACETAMINOPHEN 325 MG TABLET PO PRN (05:28)
[2018-06-18 05:54] LABS: Bacteria Wet Mount Moderate /HPF; Epithelial Cell Wet Mount Occasional /HPF (Few/HPF); RBC Wet Mount Rare /HPF; WBC Wet Mount Moderate /HPF
[2018-06-18 05:55] LABS: Clue Cells None Seen /HPF (None Seen); Trichomonas Wet Mount None Seen /HPF (None Seen); Yeast Wet Mount None Seen /HPF (None Seen)
[2018-06-18] MEDS ORDERED: cefTRIAXone 1,000 MG in SYRINGE 1 EACH IV SCH (06:00)
[2018-06-18] MEDS ORDERED: AZITHROMYCIN INJ 500 MG in SODIUM CHLORIDE 0.9% 250 ML IV SCH (06:00)
[2018-06-18] MEDS ORDERED: SODIUM CHLORIDE 0.9% 1,000 ML IV PRN (06:19)
[2018-06-18] MEDS ORDERED: GENTAMICIN INJ 80 MG in PREMIX 1 EACH IV PRN (08:14)
[2018-06-18] MEDS: metroNIDAZOLE INJ 500 MG in PREMIX 1 EACH IV SCH ×2 (08:58→17:17)
[2018-06-18] MEDS ORDERED: INFLUENZA VIRUS VACCINE 0.5 ML SYRINGE IM ONE (09:00)
[2018-06-18] MEDS ORDERED: GENTAMICIN INJ 100 ML IV ONE (09:00)
[2018-06-18] MEDS: ENOXAPARIN 30 MG/0.3 ML SYRINGE SUBCUT SCH (12:08)
[2018-06-18 14:32] LABS: Hematocrit 21.6 VOL% (35.7-47.0); Hemoglobin 7.4 GM/DL (12.0-16.0)
[2018-06-18 15:09] LABS: Hematocrit 21.1 VOL% (35.7-47.0); Hemoglobin 7.3 GM/DL (12.0-16.0)
[2018-06-18] MEDS: ALBUTEROL/IPRATROPIUM 3 ML NEB RESP TX PRN (16:53)
[2018-06-18] MEDS: CALCIUM ACETATE 667 MG CAPSULE PO SCH (17:45)
[2018-06-18] MEDS ORDERED: VANCOMYCIN INJ 250 MG in SODIUM CHLORIDE 0.9% 100 ML IV ONE (20:30)
[2018-06-18] MEDS ORDERED: GENTAMICIN INJ 60 MG in SODIUM CHLORIDE 0.9% 100 ML IV ONE (21:00)
[2018-06-18 21:04] LABS: Hematocrit 36.1 VOL% (35.7-47.0)
[2018-06-18 21:10] LABS: Hemoglobin 12.5 GM/DL (12.0-16.0)
[2018-06-19] MEDS: metroNIDAZOLE INJ 500 MG in PREMIX 1 EACH IV SCH ×3 (00:46→17:54)
[2018-06-19] MEDS: NOREPINEPHRINE 8 MG in SODIUM CHLORIDE 0.9% 242 ML IV PRN ×2 (02:20→16:31)
[2018-06-19 04:41] LABS: Basophils # 0.2 10*3/uL (0.0-0.2); Basophils % 1.2 % (0.0-0.8); Eosinophils # 0.1 10*3/uL (0.0-0.87); Eosinophils % 0.7 % (0.00-10.9); Hematocrit 32.4 VOL% (35.7-47.0); Hemoglobin 10.6 GM/DL (12.0-16.0); Immature Granulocytes % 0.9 %; Immature Granulocytes Absolute 0.17 #; Lymphocytes # 1.9 10*3/uL (1.4-4.0); Lymphocytes % 9.9 % (21.3-54.2); Mean Corpuscular HGB Conc 32.7 GM/DL (32-36); Mean Corpuscular Hemoglobin 28 PG (27-34); Mean Corpuscular Volume 85.3 FL (87-102); Mean Platelet Volume 10.6 FL (9.6-12.0); Monocytes # 0.9 10*3/uL (0.11-0.8); Monocytes % 4.6 % (1.7-12.7); NRBC # 0.02 10*3/uL; Neutrophils # 15.6 10*3/uL (1.4-7.4); Neutrophils % 82.7 % (38.7-73.9); Red Cell Distribution Width 17.2 % (9.3-17.3); White Blood Count 18.9 T/CUMM (4-12)
[2018-06-19 04:42] LABS: Platelet Count 59 T/CUMM (130-400)
[2018-06-19 04:59] LABS: Hypochromasia 1+; Platelet Estimate Decreased
[2018-06-19 05:13] LABS: Calcium 6.7 MG/DL (8.5-10.1); Osmolality,Calculated 277.5 MOS/KG (273-304)
[2018-06-19 05:26] LABS: Potassium 2.3 MMOL/L (3.5-5.1)
[2018-06-19] MEDS ORDERED: POTASSIUM CHLORIDE 20 MEQ/15 ML UDCUP PO ONE (06:00)
[2018-06-19] MEDS: ASPIRIN EC 325 MG TABLET PO SCH (09:04)
[2018-06-19] MEDS: CALCIUM ACETATE 667 MG CAPSULE PO SCH ×3 (09:04→17:55)
[2018-06-19] MEDS: BENZOCAINE/MENTHOL LOZENGE 18/BOX PO PRN (10:09)
[2018-06-19] MEDS: POTASSIUM CHLORIDE 20 MEQ/15 ML UDCUP PO SCH ×2 (11:06→20:38)
[2018-06-19] MEDS: ENOXAPARIN 30 MG/0.3 ML SYRINGE SUBCUT SCH (11:08)
[2018-06-20] MEDS: metroNIDAZOLE INJ 500 MG in PREMIX 1 EACH IV SCH ×2 (00:40→08:54)
[2018-06-20] MEDS: NOREPINEPHRINE 8 MG in SODIUM CHLORIDE 0.9% 242 ML IV PRN ×2 (01:30→18:33)
[2018-06-20 04:27] LABS: Basophils # 0.2 10*3/uL (0.0-0.2); Basophils % 1.6 % (0.0-0.8); Eosinophils # 0.4 10*3/uL (0.0-0.87); Eosinophils % 2.7 % (0.00-10.9); Hematocrit 31.6 VOL% (35.7-47.0); Hemoglobin 10.2 GM/DL (12.0-16.0); Immature Granulocytes % 0.4 %; Immature Granulocytes Absolute 0.06 #; Lymphocytes # 1.3 10*3/uL (1.4-4.0); Mean Corpuscular HGB Conc 32.3 GM/DL (32-36); Mean Corpuscular Hemoglobin 28 PG (27-34); Mean Corpuscular Volume 85.9 FL (87-102); Mean Platelet Volume 9.9 FL (9.6-12.0); Monocytes # 0.5 10*3/uL (0.11-0.8); Monocytes % 3.5 % (1.7-12.7); Neutrophils # 12.2 10*3/uL (1.4-7.4); Neutrophils % 82.8 % (38.7-73.9); Platelet Count 120 T/CUMM (130-400); Red Blood Count 3.68 MC/CUMM (3.8-5.5); Red Cell Distribution Width 17.7 % (9.3-17.3); White Blood Count 14.7 T/CUMM (4-12)
[2018-06-20 04:49] LABS: Potassium 3.4 MMOL/L (3.5-5.1)
[2018-06-20] MEDS: ALBUTEROL/IPRATROPIUM 3 ML NEB RESP TX PRN (05:45)
[2018-06-20] MEDS: CALCIUM ACETATE 667 MG CAPSULE PO SCH ×3 (08:54→17:01)
[2018-06-20] MEDS: ASPIRIN EC 325 MG TABLET PO SCH (08:54)
[2018-06-20] MEDS ORDERED: VANCOMYCIN INJ 400 MG in SODIUM CHLORIDE 0.9% 100 ML IV PRN (09:58)
[2018-06-20] MEDS ORDERED: GENTAMICIN INJ 80 MG in PREMIX 1 EACH IV ONE (12:00)
[2018-06-20] MEDS ORDERED: VANCOMYCIN INJ 400 MG in SODIUM CHLORIDE 0.9% 100 ML IV ONE (12:00)
[2018-06-20] MEDS: ENOXAPARIN 30 MG/0.3 ML SYRINGE SUBCUT SCH (12:22)
[2018-06-20] MEDS: metroNIDAZOLE 250 MG TABLET PO SCH ×2 (15:44→20:12)
[2018-06-21] MEDS: BENZOCAINE/MENTHOL LOZENGE 18/BOX PO PRN ×2 (02:58→22:09)
[2018-06-21 04:50] LABS: Calcium 7.8 MG/DL (8.5-10.1); Osmolality,Calculated 263.4 MOS/KG (273-304); Potassium 3.2 MMOL/L (3.5-5.1)
[2018-06-21] MEDS: CALCIUM ACETATE 667 MG CAPSULE PO SCH ×3 (08:56→17:28)
[2018-06-21] MEDS: metroNIDAZOLE 250 MG TABLET PO SCH ×3 (08:57→21:26)
[2018-06-21] MEDS: ASPIRIN EC 325 MG TABLET PO SCH (08:57)
[2018-06-21] MEDS: CHOLESTYRAMINE 4 GM PACK PO SCH ×2 (12:01→21:27)
[2018-06-21] MEDS: ENOXAPARIN 30 MG/0.3 ML SYRINGE SUBCUT SCH (12:01)
[2018-06-21] MEDS: HYDROCORTISONE 100 MG VIAL IV SCH (17:26)
[2018-06-22 04:09] LABS: Basophils % 0.7 % (0.0-0.8); Eosinophils % 0.2 % (0.00-10.9); Hematocrit 30.1 VOL% (35.7-47.0); Hemoglobin 9.8 GM/DL (12.0-16.0); Immature Granulocytes % 0.5 %; Immature Granulocytes Absolute 0.03 #; Lymphocytes # 0.9 10*3/uL (1.4-4.0); Lymphocytes % 15.1 % (21.3-54.2); Mean Corpuscular HGB Conc 32.6 GM/DL (32-36); Mean Corpuscular Hemoglobin 28 PG (27-34); Mean Corpuscular Volume 85.5 FL (87-102); Mean Platelet Volume 10.3 FL (9.6-12.0); Monocytes # 0.1 10*3/uL (0.11-0.8); Neutrophils # 4.6 10*3/uL (1.4-7.4); Neutrophils % 81.5 % (38.7-73.9); Platelet Count 93 T/CUMM (130-400); Red Blood Count 3.52 MC/CUMM (3.8-5.5); Red Cell Distribution Width 17.7 % (9.3-17.3); White Blood Count 5.6 T/CUMM (4-12)
[2018-06-22 04:49] LABS: Calcium 7.6 MG/DL (8.5-10.1); Osmolality,Calculated 263.2 MOS/KG (273-304); Potassium 3.6 MMOL/L (3.5-5.1)
[2018-06-22] MEDS: HYDROCORTISONE 100 MG VIAL IV SCH (05:01)
[2018-06-22 07:27] LABS: Burr Cells Few; Platelet Estimate Decreased
[2018-06-22] MEDS: ASPIRIN EC 325 MG TABLET PO SCH (08:26)
[2018-06-22] MEDS: metroNIDAZOLE 250 MG TABLET PO SCH ×3 (08:26→21:19)
[2018-06-22] MEDS: CALCIUM ACETATE 667 MG CAPSULE PO SCH ×3 (08:26→17:33)
[2018-06-22] MEDS: CHOLESTYRAMINE 4 GM PACK PO SCH ×2 (09:04→21:19)
[2018-06-22] MEDS: ENOXAPARIN 30 MG/0.3 ML SYRINGE SUBCUT SCH (11:19)
[2018-06-22] MEDS: HYDROCORTISONE 10 MG TABLET PO SCH ×2 (11:19→21:19)
[2018-06-22] MEDS ORDERED: HYDROCORTISONE 100 MG VIAL IV SCH (17:00)
[2018-06-23 04:34] LABS: Calcium 7.5 MG/DL (8.5-10.1); Osmolality,Calculated 261.5 MOS/KG (273-304); Potassium 3.2 MMOL/L (3.5-5.1)
[2018-06-23] MEDS: CALCIUM ACETATE 667 MG CAPSULE PO SCH ×3 (10:54→16:39)
[2018-06-23] MEDS: ASPIRIN EC 325 MG TABLET PO SCH (11:19)
[2018-06-23] MEDS: HYDROCORTISONE 10 MG TABLET PO SCH ×2 (11:19→20:16)
[2018-06-23] MEDS: metroNIDAZOLE 250 MG TABLET PO SCH ×3 (11:20→20:16)
[2018-06-23] MEDS: ENOXAPARIN 30 MG/0.3 ML SYRINGE SUBCUT SCH (11:20)
[2018-06-23] MEDS: CHOLESTYRAMINE 4 GM PACK PO SCH ×2 (11:20→20:17)
[2018-06-23] MEDS ORDERED: BISACODYL 5 MG TABLET PO ONE ×2 (12:00→19:30)
[2018-06-23] MEDS: INSULIN LISPRO 100 UNIT/ML SUBCUT SCH ×3 (13:31→22:45)
[2018-06-23] MEDS ORDERED: GENTAMICIN INJ 80 MG in PREMIX 1 EACH IV ONE (14:00)
[2018-06-23] MEDS ORDERED: VANCOMYCIN INJ 400 MG in SODIUM CHLORIDE 0.9% 100 ML IV ONE (15:00)
[2018-06-23] MEDS: SODIUM CHLORIDE 1 GM TABLET PO SCH (16:39)
[2018-06-23] MEDS ORDERED: POLYETHYLENE GLYCOL POWDER 255 GM BOTTLE PO ONE (18:00)
[2018-06-24 06:23] LABS: Eosinophils % 0.1 % (0.00-10.9); Hematocrit 27.3 VOL% (35.7-47.0); Hemoglobin 9.4 GM/DL (12.0-16.0); Immature Granulocytes % 1.1 %; Immature Granulocytes Absolute 0.09 #; Lymphocytes % 12.5 % (21.3-54.2); Mean Corpuscular HGB Conc 34.4 GM/DL (32-36); Mean Corpuscular Hemoglobin 29 PG (27-34); Mean Corpuscular Volume 84.8 FL (87-102); Mean Platelet Volume 11.1 FL (9.6-12.0); Monocytes # 0.5 10*3/uL (0.11-0.8); Monocytes % 6.7 % (1.7-12.7); NRBC # 0.03 10*3/uL; Neutrophils # 6.3 10*3/uL (1.4-7.4); Neutrophils % 79.6 % (38.7-73.9); Platelet Count 102 T/CUMM (130-400); Red Blood Count 3.22 MC/CUMM (3.8-5.5); Red Cell Distribution Width 17.2 % (9.3-17.3); White Blood Count 7.9 T/CUMM (4-12)
[2018-06-24 06:45] LABS: Calcium 7.6 MG/DL (8.5-10.1); Osmolality,Calculated 274.2 MOS/KG (273-304); Potassium 2.7 MMOL/L (3.5-5.1)
[2018-06-24] MEDS ORDERED: POTASSIUM CHLORIDE RIDER 10 MEQ in PREMIX 1 EACH IV PRN (08:01)
[2018-06-24] MEDS ORDERED: POTASSIUM CHLORIDE 20 MEQ TABLET PO PRN (08:01)
[2018-06-24] MEDS ORDERED: POTASSIUM CHLORIDE RIDER IV ONE (08:30)
[2018-06-24] MEDS ORDERED: GLYCOPYRROLATE 0.4 MG/2 ML VIAL ONE (08:30)
[2018-06-24] MEDS ORDERED: LIDOCAINE 100 MG/5 ML SYRINGE ONE (08:30)
[2018-06-24] MEDS ORDERED: PHENYLEPHRINE 1 MG/10 ML SYRINGE IV ONE (08:30)
[2018-06-24] MEDS ORDERED: SODIUM CHLORIDE 0.9% IV ONE (08:30)
[2018-06-24] MEDS ORDERED: PROPOFOL 200 MG/20 ML VIAL IV ONE (08:30)
[2018-06-24] MEDS: INSULIN LISPRO 100 UNIT/ML SUBCUT SCH ×4 (08:54→21:07)
[2018-06-24] MEDS: CALCIUM ACETATE 667 MG CAPSULE PO SCH ×3 (09:03→18:04)
[2018-06-24] MEDS: metroNIDAZOLE 250 MG TABLET PO SCH (09:30)
[2018-06-24] MEDS: HYDROCORTISONE 10 MG TABLET PO SCH ×2 (09:30→21:06)
[2018-06-24] MEDS: CHOLESTYRAMINE 4 GM PACK PO SCH ×2 (09:30→21:06)
[2018-06-24] MEDS: SODIUM CHLORIDE 1 GM TABLET PO SCH (09:30)
[2018-06-24] MEDS: ASPIRIN EC 325 MG TABLET PO SCH (09:30)
[2018-06-24] MEDS ORDERED: DEXTROSE 5% 1,000 ML IV SCH (15:30)
[2018-06-25 05:41] LABS: Basophils % 0.1 % (0.0-0.8); Eosinophils # 0.1 10*3/uL (0.0-0.87); Hematocrit 26.4 VOL% (35.7-47.0); Hemoglobin 8.5 GM/DL (12.0-16.0); Immature Granulocytes % 4.4 %; Immature Granulocytes Absolute 0.31 #; Lymphocytes # 1.7 10*3/uL (1.4-4.0); Lymphocytes % 24.7 % (21.3-54.2); Mean Corpuscular HGB Conc 32.2 GM/DL (32-36); Mean Corpuscular Hemoglobin 28 PG (27-34); Mean Platelet Volume 11.4 FL (9.6-12.0); Monocytes # 0.6 10*3/uL (0.11-0.8); Monocytes % 8.8 % (1.7-12.7); NRBC # 0.11 10*3/uL; Neutrophils # 4.2 10*3/uL (1.4-7.4); Platelet Count 122 T/CUMM (130-400); Red Blood Count 3.07 MC/CUMM (3.8-5.5); Red Cell Distribution Width 18.1 % (9.3-17.3); White Blood Count 7.1 T/CUMM (4-12)
[2018-06-25 05:52] LABS: Calcium 7.4 MG/DL (8.5-10.1); Osmolality,Calculated 264.9 MOS/KG (273-304); Potassium 3.2 MMOL/L (3.5-5.1)
[2018-06-25 06:12] LABS: Hypochromasia 1+; Microcytosis 1+
[2018-06-25 06:13] LABS: Anisocytosis 1+; Ovalocytes Few; Platelet Estimate Adequate; Polychromasia Slight
[2018-06-25] MEDS: ALBUTEROL/IPRATROPIUM 3 ML NEB RESP TX PRN (08:17)
[2018-06-25] MEDS: CHOLESTYRAMINE 4 GM PACK PO SCH (09:10)
[2018-06-25] MEDS: INSULIN LISPRO 100 UNIT/ML SUBCUT SCH ×2 (09:11→12:50)
[2018-06-25] MEDS: CALCIUM ACETATE 667 MG CAPSULE PO SCH ×2 (09:12→12:52)
[2018-06-25] MEDS: ASPIRIN EC 325 MG TABLET PO SCH (09:12)
[2018-06-25] MEDS: HYDROCORTISONE 10 MG TABLET PO SCH (09:13)
[2018-06-25 12:13] VITALS: BP 93/58
== END 2018-06-25 13:30 | disposition home or self-care (01) | DRG 314 ==
LOC: EDUNIT# → EDBD → N.ED 02:02 → SUATTDRO 05:18 → N.EDINP 05:18 → N.ICU 05:40 → N.2E 06-22 15:06
PROVIDERS: ADMIT Internal Medicine; ATTEND Internal Medicine

== ENCOUNTER 2018-07-16 18:20 | Inpatient (IN) ==
[2018-07-16] MEDS ORDERED: DEXTROSE 50% 25 GM/50 ML VIAL IV ONE (20:49)
[2018-07-16] MEDS ORDERED: ALBUTEROL 2.5 MG/3 ML NEB RESP TX PRN (20:51)
[2018-07-16] MEDS: DEXTROSE 50% 25 GM/50 ML VIAL IV PRN (20:53)
[2018-07-16] MEDS ORDERED: SODIUM CHLORIDE 0.9% 1,000 ML IV PRN (21:12)
[2018-07-16] MEDS ORDERED: POTASSIUM CHLORIDE RIDER 20 MEQ in PREMIX 1 EACH IV PRN (21:15)
[2018-07-16] MEDS ORDERED: GLUCAGON 1 MG VIAL IM PRN (21:21)
[2018-07-16] MEDS ORDERED: POTASSIUM CHLORIDE RIDER 10 MEQ in PREMIX 1 EACH IV PRN (22:16)
[2018-07-16] MEDS: methylPREDNISolone SOD SUC 40 MG/1 ML VIAL IV SCH (22:51)
[2018-07-16] MEDS: PIPERACILLIN/TAZOBACTAM 3,375 MG in SODIUM CHLORIDE 0.9% 100 ML IV SCH (22:52)
[2018-07-16] MEDS: NOREPINEPHRINE 8 MG in SODIUM CHLORIDE 0.9% 242 ML IV SCH (23:02)
[2018-07-17] MEDS: DEXTROSE 50% 25 GM/50 ML VIAL IV PRN (00:08)
[2018-07-17] MEDS: POTASSIUM CHLORIDE 20 MEQ TABLET PO PRN ×4 (02:00→20:05)
[2018-07-17 08:19] LABS: Basophils # 0.1 10*3/uL (0.0-0.2); Basophils % 0.2 % (0.0-0.8); Hematocrit 22.2 VOL% (35.7-47.0); Hemoglobin 7.5 GM/DL (12.0-16.0); Immature Granulocytes % 1.5 %; Immature Granulocytes Absolute 0.35 #; Lymphocytes # 0.4 10*3/uL (1.4-4.0); Lymphocytes % 1.6 % (21.3-54.2); Mean Corpuscular HGB Conc 33.8 GM/DL (32-36); Mean Corpuscular Hemoglobin 29 PG (27-34); Mean Corpuscular Volume 86.7 FL (87-102); Mean Platelet Volume 10.4 FL (9.6-12.0); Monocytes # 0.2 10*3/uL (0.11-0.8); Monocytes % 0.8 % (1.7-12.7); Neutrophils % 95.9 % (38.7-73.9); Platelet Count 116 T/CUMM (130-400); Red Blood Count 2.56 MC/CUMM (3.8-5.5); Red Cell Distribution Width 18.1 % (9.3-17.3); White Blood Count 22.9 T/CUMM (4-12)
[2018-07-17 08:38] LABS: Albumin 2.1 G/DL (3.4-5.0); Calcium 7.6 MG/DL (8.5-10.1); Potassium 3.4 MMOL/L (3.5-5.1); Total Protein 7.7 G/DL (6.4-8.3)
[2018-07-17 08:43] LABS: Band Neutrophils 6 % (0-10); Hypochromasia 1+; Lymphocytes 3 % (20-55); Microcytosis 1+; Segmented Neutrophils 90 % (50-85); Total Cells Counted 100
[2018-07-17 08:44] LABS: Anisocytosis 1+; Polychromasia Slight; Target Cells Slight
[2018-07-17] MEDS: methylPREDNISolone SOD SUC 40 MG/1 ML VIAL IV SCH ×2 (09:29→22:10)
[2018-07-17] MEDS: PIPERACILLIN/TAZOBACTAM 3,375 MG in SODIUM CHLORIDE 0.9% 100 ML IV SCH ×2 (09:35→22:09)
[2018-07-17] MEDS: NOREPINEPHRINE 8 MG in SODIUM CHLORIDE 0.9% 242 ML IV SCH (11:01)
[2018-07-17] MEDS ORDERED: VANCOMYCIN INJ 400 MG in SODIUM CHLORIDE 0.9% 100 ML IV PRN (12:25)
[2018-07-17] MEDS ORDERED: VANCOMYCIN INJ 1,000 MG in SODIUM CHLORIDE 0.9% 250 ML IV ONE (12:30)
[2018-07-17] MEDS ORDERED: SODIUM CHLORIDE 0.9% 1,000 ML IV PRN (19:44)
[2018-07-17] MEDS ORDERED: methylPREDNISolone SOD SUC 40 MG/1 ML VIAL IV ONE (19:52)
[2018-07-17] MEDS ORDERED: methylPREDNISolone SOD SUC 125 MG/2 ML VIAL ONE (19:56)
[2018-07-18] MEDS: NOREPINEPHRINE 8 MG in SODIUM CHLORIDE 0.9% 242 ML IV SCH ×2 (02:00→21:19)
[2018-07-18 05:56] LABS: Basophils % 0.2 % (0.0-0.8); Hematocrit 20.1 VOL% (35.7-47.0); Immature Granulocytes % 0.9 %; Immature Granulocytes Absolute 0.14 #; Lymphocytes # 1.1 10*3/uL (1.4-4.0); Lymphocytes % 6.9 % (21.3-54.2); Mean Corpuscular HGB Conc 31.8 GM/DL (32-36); Mean Corpuscular Hemoglobin 29 PG (27-34); Mean Platelet Volume 10.4 FL (9.6-12.0); Monocytes # 0.3 10*3/uL (0.11-0.8); Neutrophils # 13.9 10*3/uL (1.4-7.4); Platelet Count 130 T/CUMM (130-400); Red Blood Count 2.21 MC/CUMM (3.8-5.5); Red Cell Distribution Width 19.3 % (9.3-17.3); White Blood Count 15.5 T/CUMM (4-12)
[2018-07-18 06:10] LABS: Hemoglobin 6.4 GM/DL (12.0-16.0)
[2018-07-18 06:25] LABS: Calcium 8.5 MG/DL (8.5-10.1); Osmolality,Calculated 279.8 MOS/KG (273-304); Potassium 5.3 MMOL/L (3.5-5.1)
[2018-07-18] MEDS: DEXTROSE 50% 25 GM/50 ML VIAL IV PRN (06:35)
[2018-07-18 07:05] LABS: Platelet Estimate Adequate
[2018-07-18 07:06] LABS: Anisocytosis 2+; Poikilocytosis 1+
[2018-07-18] MEDS: PIPERACILLIN/TAZOBACTAM 3,375 MG in SODIUM CHLORIDE 0.9% 100 ML IV SCH (09:37)
[2018-07-18] MEDS: methylPREDNISolone SOD SUC 40 MG/1 ML VIAL IV SCH (09:38)
[2018-07-18] MEDS ORDERED: VANCOMYCIN INJ 400 MG in SODIUM CHLORIDE 0.9% 100 ML IV ONE (13:00)
[2018-07-18] MEDS ORDERED: EPOETIN ALFA 10,000 UNIT/1 ML VIAL IV PRN (16:24)
[2018-07-18] MEDS: ZINC OXIDE PASTE 113 GM TUBE TOP SCH (21:21)
[2018-07-19] MEDS: methylPREDNISolone SOD SUC 40 MG/1 ML VIAL IV SCH ×3 (00:34→22:15)
[2018-07-19] MEDS: PIPERACILLIN/TAZOBACTAM 3,375 MG in SODIUM CHLORIDE 0.9% 100 ML IV SCH ×3 (00:34→22:15)
[2018-07-19] MEDS: ZINC OXIDE PASTE 113 GM TUBE TOP SCH ×2 (09:06→22:15)
[2018-07-19] MEDS: NOREPINEPHRINE 8 MG in SODIUM CHLORIDE 0.9% 242 ML IV SCH (20:18)
[2018-07-20 04:40] LABS: Basophils % 0.1 % (0.0-0.8); Hematocrit 24.9 VOL% (35.7-47.0); Hemoglobin 7.9 GM/DL (12.0-16.0); Immature Granulocytes % 0.4 %; Immature Granulocytes Absolute 0.03 #; Lymphocytes # 0.7 10*3/uL (1.4-4.0); Lymphocytes % 8.7 % (21.3-54.2); Mean Corpuscular HGB Conc 31.7 GM/DL (32-36); Mean Corpuscular Hemoglobin 28 PG (27-34); Mean Corpuscular Volume 89.6 FL (87-102); Mean Platelet Volume 10.5 FL (9.6-12.0); Monocytes # 0.2 10*3/uL (0.11-0.8); Monocytes % 2.7 % (1.7-12.7); NRBC # 0.03 10*3/uL; Neutrophils # 7.1 10*3/uL (1.4-7.4); Neutrophils % 88.1 % (38.7-73.9); Platelet Count 83 T/CUMM (130-400); Red Blood Count 2.78 MC/CUMM (3.8-5.5); Red Cell Distribution Width 18.3 % (9.3-17.3); White Blood Count 8.1 T/CUMM (4-12)
[2018-07-20 05:10] LABS: Calcium 7.9 MG/DL (8.5-10.1); Osmolality,Calculated 301.4 MOS/KG (273-304); Potassium 5.1 MMOL/L (3.5-5.1)
[2018-07-20 06:50] LABS: Band Neutrophils 2 % (0-10); Lymphocytes 4 % (20-55); Segmented Neutrophils 94 % (50-85); Total Cells Counted 100
[2018-07-20 06:51] LABS: Anisocytosis 1+; Hypochromasia 1+; Platelet Estimate Decreased; Target Cells Few
[2018-07-20] MEDS: PIPERACILLIN/TAZOBACTAM 3,375 MG in SODIUM CHLORIDE 0.9% 100 ML IV SCH ×2 (10:35→22:53)
[2018-07-20] MEDS: methylPREDNISolone SOD SUC 40 MG/1 ML VIAL IV SCH ×2 (10:39→22:50)
[2018-07-20] MEDS: ZINC OXIDE PASTE 113 GM TUBE TOP SCH ×2 (10:43→21:53)
[2018-07-20] MEDS: NOREPINEPHRINE 8 MG in SODIUM CHLORIDE 0.9% 242 ML IV SCH (20:33)
[2018-07-21 04:45] LABS: Hematocrit 22.7 VOL% (35.7-47.0); Hemoglobin 7.5 GM/DL (12.0-16.0); Immature Granulocytes % 1.7 %; Immature Granulocytes Absolute 0.07 #; Lymphocytes # 0.4 10*3/uL (1.4-4.0); Mean Corpuscular Hemoglobin 29 PG (27-34); Mean Platelet Volume 10.9 FL (9.6-12.0); Monocytes # 0.1 10*3/uL (0.11-0.8); Monocytes % 3.4 % (1.7-12.7); NRBC # 0.04 10*3/uL; Neutrophils # 3.5 10*3/uL (1.4-7.4); Neutrophils % 84.9 % (38.7-73.9); Red Blood Count 2.58 MC/CUMM (3.8-5.5); Red Cell Distribution Width 17.8 % (9.3-17.3); White Blood Count 4.1 T/CUMM (4-12)
[2018-07-21 04:49] LABS: Platelet Count 56 T/CUMM (130-400)
[2018-07-21 05:14] LABS: Hypochromasia 1+; Ovalocytes Slight; Platelet Estimate Decreased
[2018-07-21 05:34] LABS: Albumin 2.1 G/DL (3.4-5.0); Calcium 7.9 MG/DL (8.5-10.1); Osmolality,Calculated 319.1 MOS/KG (273-304)
[2018-07-21] MEDS: methylPREDNISolone SOD SUC 40 MG/1 ML VIAL IV SCH ×2 (09:02→23:30)
[2018-07-21] MEDS: PIPERACILLIN/TAZOBACTAM 3,375 MG in SODIUM CHLORIDE 0.9% 100 ML IV SCH (09:04)
[2018-07-21] MEDS: LEVOTHYROXINE 25 MCG TABLET PO SCH (09:05)
[2018-07-21] MEDS: ZINC OXIDE PASTE 113 GM TUBE TOP SCH ×2 (10:19→23:27)
[2018-07-21] MEDS ORDERED: GLUCAGON 1 MG VIAL IM PRN (10:57)
[2018-07-21] MEDS ORDERED: DEXTROSE 50% 25 GM/50 ML VIAL IV PRN (10:57)
[2018-07-21] MEDS ORDERED: CALCIUM ACETATE 667 MG CAPSULE PO SCH (12:00)
[2018-07-21] MEDS: cefTRIAXone 1,000 MG in SYRINGE 1 EACH IV SCH (13:32)
[2018-07-21] MEDS: INSULIN LISPRO 100 UNIT/ML SUBCUT SCH ×3 (13:43→23:29)
[2018-07-21] MEDS: CALCIUM ACETATE 667 MG CAPSULE PO SCH ×2 (13:44→18:34)
[2018-07-21] MEDS ORDERED: VANCOMYCIN INJ 400 MG in SODIUM CHLORIDE 0.9% 100 ML IV ONE (15:00)
[2018-07-21] MEDS: NOREPINEPHRINE 8 MG in SODIUM CHLORIDE 0.9% 242 ML IV SCH (23:28)
[2018-07-21] MEDS: SODIUM BICARBONATE 650 MG TABLET PO SCH (23:34)
[2018-07-22 05:34] LABS: Hematocrit 23.2 VOL% (35.7-47.0); Hemoglobin 7.4 GM/DL (12.0-16.0); Immature Granulocytes % 1.7 %; Immature Granulocytes Absolute 0.05 #; Lymphocytes # 0.3 10*3/uL (1.4-4.0); Mean Corpuscular HGB Conc 31.9 GM/DL (32-36); Mean Corpuscular Hemoglobin 28 PG (27-34); Mean Corpuscular Volume 88.5 FL (87-102); Mean Platelet Volume 11.3 FL (9.6-12.0); Monocytes # 0.1 10*3/uL (0.11-0.8); NRBC # 0.13 10*3/uL; Neutrophils # 2.6 10*3/uL (1.4-7.4); Neutrophils % 86.3 % (38.7-73.9); Platelet Count 45 T/CUMM (130-400); Red Blood Count 2.62 MC/CUMM (3.8-5.5); Red Cell Distribution Width 17.4 % (9.3-17.3)
[2018-07-22 05:59] LABS: Albumin 2.1 G/DL (3.4-5.0); Calcium 7.7 MG/DL (8.5-10.1); Osmolality,Calculated 298.7 MOS/KG (273-304); Potassium 4.2 MMOL/L (3.5-5.1)
[2018-07-22 06:07] LABS: Lymphocytes 7 % (20-55); Nucleated Red Blood Cells 1 (0-5); Segmented Neutrophils 91 % (50-85); Total Cells Counted 100
[2018-07-22 06:08] LABS: Hypochromasia 1+; Microcytosis 1+; Ovalocytes Slight; Platelet Estimate Decreased; Target Cells Slight
[2018-07-22] MEDS: LEVOTHYROXINE 25 MCG TABLET PO SCH (08:06)
[2018-07-22] MEDS: INSULIN LISPRO 100 UNIT/ML SUBCUT SCH ×4 (08:07→21:49)
[2018-07-22] MEDS: CALCIUM ACETATE 667 MG CAPSULE PO SCH ×3 (08:07→17:05)
[2018-07-22] MEDS: SODIUM BICARBONATE 650 MG TABLET PO SCH ×2 (08:08→21:48)
[2018-07-22] MEDS: ZINC OXIDE PASTE 113 GM TUBE TOP SCH ×2 (09:43→21:48)
[2018-07-22] MEDS: methylPREDNISolone SOD SUC 40 MG/1 ML VIAL IV SCH ×2 (10:17→21:58)
[2018-07-22] MEDS: cefTRIAXone 1,000 MG in SYRINGE 1 EACH IV SCH (15:19)
[2018-07-23] MEDS: LEVOTHYROXINE 25 MCG TABLET PO SCH (06:51)
[2018-07-23] MEDS: methylPREDNISolone SOD SUC 40 MG/1 ML VIAL IV SCH ×3 (07:33→22:54)
[2018-07-23] MEDS: ZINC OXIDE PASTE 113 GM TUBE TOP SCH ×2 (08:09→21:13)
[2018-07-23] MEDS: CALCIUM ACETATE 667 MG CAPSULE PO SCH ×3 (08:09→16:21)
[2018-07-23] MEDS: INSULIN LISPRO 100 UNIT/ML SUBCUT SCH ×4 (08:09→20:54)
[2018-07-23] MEDS: SODIUM BICARBONATE 650 MG TABLET PO SCH ×2 (08:09→20:32)
[2018-07-24 06:04] LABS: Calcium 8.2 MG/DL (8.5-10.1); Osmolality,Calculated 279.2 MOS/KG (273-304); Potassium 3.7 MMOL/L (3.5-5.1)
[2018-07-24] MEDS: LEVOTHYROXINE 25 MCG TABLET PO SCH (06:35)
[2018-07-24 07:22] VITALS: BP 142/70
[2018-07-24] MEDS: ZINC OXIDE PASTE 113 GM TUBE TOP SCH (09:16)
[2018-07-24] MEDS: CALCIUM ACETATE 667 MG CAPSULE PO SCH ×2 (09:16→09:31)
[2018-07-24] MEDS: INSULIN LISPRO 100 UNIT/ML SUBCUT SCH (09:16)
[2018-07-24] MEDS: SODIUM BICARBONATE 650 MG TABLET PO SCH (09:16)
[2018-07-24] MEDS: methylPREDNISolone SOD SUC 40 MG/1 ML VIAL IV SCH (09:17)
== END 2018-07-24 11:07 | disposition home or self-care (01) | DRG 698 ==
LOC: SUATTDRO 20:49 → N.CC 20:49 → N.2E 07-23 14:04
PROVIDERS: ADMIT Internal Medicine; ATTEND Family Medicine

== ENCOUNTER 2018-08-28 12:33 | Inpatient (IN) ==
[2018-08-28] MEDS ORDERED: SODIUM CHLORIDE 0.9% 500 ML IV STA (12:56)
[2018-08-28] MEDS ORDERED: DEXTROSE 50% 25 GM/50 ML VIAL IV STA (13:30)
[2018-08-28] MEDS ORDERED: DEXTROSE 50% 25 GM/50 ML SYRINGE IV ONE (13:33)
[2018-08-28] MEDS ORDERED: DEXTROSE 50% 25 GM/50 ML SYRINGE IV STA (13:34)
[2018-08-28 13:43] LABS: Basophils # 0.1 10*3/uL (0.0-0.2); Eosinophils # 0.1 10*3/uL (0.0-0.87); Eosinophils % 0.4 % (0.00-10.9); Hematocrit 21.7 VOL% (35.7-47.0); Hemoglobin 6.9 GM/DL (12.0-16.0); Immature Granulocytes % 0.7 %; Immature Granulocytes Absolute 0.08 #; Lymphocytes # 1.5 10*3/uL (1.4-4.0); Lymphocytes % 12.2 % (21.3-54.2); Mean Corpuscular HGB Conc 31.8 GM/DL (32-36); Mean Corpuscular Hemoglobin 27 PG (27-34); Mean Corpuscular Volume 83.8 FL (87-102); Mean Platelet Volume 9.2 FL (9.6-12.0); Monocytes # 0.4 10*3/uL (0.11-0.8); Monocytes % 3.2 % (1.7-12.7); Neutrophils # 9.9 10*3/uL (1.4-7.4); Neutrophils % 82.5 % (38.7-73.9); Platelet Count 114 T/CUMM (130-400); Red Blood Count 2.59 MC/CUMM (3.8-5.5); Red Cell Distribution Width 16.4 % (9.3-17.3)
[2018-08-28 13:54] LABS: INR 1.2; PT Patient Result 13.2 SECS
[2018-08-28 14:02] LABS: Ammonia 68 UMOL/L (11-32)
[2018-08-28 14:06] LABS: Alanine Aminotransferase 12 U/L (13-56); Albumin 1.7 G/DL (3.4-5.0); Alkaline Phosphatase 176 U/L (45-117); Aspartate Amino Transferase 29 U/L (0-37); Blood Urea Nitrogen 76 MG/DL (7-18); Glucose 55 MG/DL (74-106); Osmolality,Calculated 278.9 MOS/KG (273-304); Potassium 3.1 MMOL/L (3.5-5.1); Sodium 129 MMOL/L (136-145); Total Protein 6.3 G/DL (6.4-8.3)
[2018-08-28 14:10] LABS: Calcium 5.6 MG/DL (8.5-10.1)
[2018-08-28] MEDS ORDERED: SODIUM BICARBONATE 50 MEQ/50 ML VIAL IV STA (14:23)
[2018-08-28] MEDS ORDERED: CALCIUM CHLORIDE 1,000 MG/10 ML SYRINGE IV STA (14:23)
[2018-08-28] MEDS ORDERED: SODIUM BICARBONATE 50 MEQ/50 ML SYRINGE IV STA (14:32)
[2018-08-28] MEDS ORDERED: ONDANSETRON 4 MG/2 ML VIAL IV PRN (15:06)
[2018-08-28] MEDS ORDERED: ACETAMINOPHEN 325 MG TABLET PO PRN (15:06)
[2018-08-28] MEDS ORDERED: SODIUM CHLORIDE 0.9% 1,000 ML IV PRN (15:08)
[2018-08-28 15:21] LABS: ABG Base Excess -15.3 MMOL/L (-2.5-2.5); ABG HCO3 12.3 MMOL/L (20-26); ABG Oxygen Saturation 91.8 % (95-100); ABG PCO2 26.9 MM HG (35-48); ABG PH 7.226 (7.35-7.45); ABG PO2 79.3 MM HG (80-95); ABG TCO2 10.9 MMOL/L (23-27)
[2018-08-28] MEDS ORDERED: CALCIUM ACETATE 667 MG CAPSULE PO SCH (15:30)
[2018-08-28] MEDS: DEXTROSE 5% NACL 0.9% 1,000 ML IV SCH (17:38)
[2018-08-28] MEDS: cefTRIAXone 1,000 MG in SYRINGE 1 EACH IV SCH (17:43)
[2018-08-28] MEDS: metroNIDAZOLE INJ 500 MG in PREMIX 1 EACH IV SCH ×2 (17:43→23:01)
[2018-08-28] MEDS: CALCIUM ACETATE 667 MG CAPSULE PO SCH (17:44)
[2018-08-28] MEDS ORDERED: VANCOMYCIN INJ 1,000 MG in SODIUM CHLORIDE 0.9% 250 ML IV ONE (19:00)
[2018-08-28] MEDS ORDERED: SODIUM CHLORIDE 0.9% 250 ML IV ONE (19:42)
[2018-08-28 20:31] LABS: Hematocrit 27.5 VOL% (35.7-47.0); Hemoglobin 9.1 GM/DL (12.0-16.0)
[2018-08-29] MEDS: NOREPINEPHRINE 8 MG in SODIUM CHLORIDE 0.9% 242 ML IV PRN ×2 (00:54→18:18)
[2018-08-29] MEDS: metroNIDAZOLE INJ 500 MG in PREMIX 1 EACH IV SCH ×4 (03:22→21:34)
[2018-08-29 04:49] LABS: Basophils # 0.1 10*3/uL (0.0-0.2); Basophils % 0.7 % (0.0-0.8); Eosinophils # 0.1 10*3/uL (0.0-0.87); Eosinophils % 0.8 % (0.00-10.9); Hematocrit 25.1 VOL% (35.7-47.0); Hemoglobin 8.4 GM/DL (12.0-16.0); Immature Granulocytes % 0.9 %; Immature Granulocytes Absolute 0.15 #; Lymphocytes # 0.8 10*3/uL (1.4-4.0); Lymphocytes % 5.1 % (21.3-54.2); Mean Corpuscular HGB Conc 33.5 GM/DL (32-36); Mean Corpuscular Hemoglobin 28 PG (27-34); Mean Platelet Volume 9.4 FL (9.6-12.0); Monocytes # 0.4 10*3/uL (0.11-0.8); Monocytes % 2.6 % (1.7-12.7); Neutrophils # 14.4 10*3/uL (1.4-7.4); Neutrophils % 89.9 % (38.7-73.9); Platelet Count 109 T/CUMM (130-400); Red Blood Count 3.06 MC/CUMM (3.8-5.5); Red Cell Distribution Width 15.5 % (9.3-17.3)
[2018-08-29 04:59] LABS: Hemoglobin 8.4 GM/DL (12.0-16.0)
[2018-08-29] MEDS: DEXTROSE 50% 25 GM/50 ML SYRINGE IV PRN ×2 (05:14→16:33)
[2018-08-29 05:17] LABS: Albumin 1.6 G/DL (3.4-5.0); Bilirubin,Total 1.5 MG/DL (0.2-1.0); Calcium 6.1 MG/DL (8.5-10.1); Osmolality,Calculated 283.5 MOS/KG (273-304); Total Protein 5.6 G/DL (6.4-8.3)
[2018-08-29 05:24] LABS: Potassium 2.5 MMOL/L (3.5-5.1)
[2018-08-29] MEDS ORDERED: POTASSIUM CHLORIDE 10 MEQ TABLET PO ONE (05:45)
[2018-08-29] MEDS: DEXTROSE 5% NACL 0.9% 1,000 ML IV SCH (06:32)
[2018-08-29 06:46] LABS: Hypochromasia 1+; Microcytosis 1+; Ovalocytes Slight; Target Cells Slight
[2018-08-29 06:47] LABS: Platelet Estimate Decreased
[2018-08-29] MEDS: LEVOTHYROXINE 25 MCG TABLET PO SCH (07:06)
[2018-08-29] MEDS ORDERED: DEXTROSE 10% 500 ML IV PRN (08:15)
[2018-08-29] MEDS: CHOLESTYRAMINE/ASPARTAME 4 GM PACK PO SCH ×2 (08:57→21:30)
[2018-08-29] MEDS: CALCIUM ACETATE 667 MG CAPSULE PO SCH ×3 (09:07→17:23)
[2018-08-29] MEDS: ASPIRIN EC 81 MG TABLET PO SCH (09:07)
[2018-08-29] MEDS: PANTOPRAZOLE 40 MG TABLET PO SCH (09:08)
[2018-08-29 12:15] LABS: Hematocrit 27.9 VOL% (35.7-47.0); Hemoglobin 8.9 GM/DL (12.0-16.0)
[2018-08-29] MEDS: DESITIN 4OZ/NYSTATIN 15 GRAM MIXTURE PASTE TOP SCH ×2 (15:13→21:31)
[2018-08-29] MEDS ORDERED: VANCOMYCIN INJ 500 MG in SODIUM CHLORIDE 0.9% 100 ML IV PRN (16:00)
[2018-08-29] MEDS: cefTRIAXone 1,000 MG in SYRINGE 1 EACH IV SCH (17:23)
[2018-08-29 20:34] LABS: Hematocrit 27.6 VOL% (35.7-47.0); Hemoglobin 9.1 GM/DL (12.0-16.0)
[2018-08-30] MEDS: metroNIDAZOLE INJ 500 MG in PREMIX 1 EACH IV SCH ×4 (03:50→21:26)
[2018-08-30 05:08] LABS: Basophils # 0.1 10*3/uL (0.0-0.2); Basophils % 1.2 % (0.0-0.8); Eosinophils # 0.2 10*3/uL (0.0-0.87); Eosinophils % 1.6 % (0.00-10.9); Hematocrit 25.9 VOL% (35.7-47.0); Hemoglobin 8.4 GM/DL (12.0-16.0); Immature Granulocytes % 0.7 %; Immature Granulocytes Absolute 0.08 #; Lymphocytes # 1.1 10*3/uL (1.4-4.0); Lymphocytes % 9.5 % (21.3-54.2); Mean Corpuscular HGB Conc 32.4 GM/DL (32-36); Mean Corpuscular Hemoglobin 27 PG (27-34); Mean Corpuscular Volume 84.4 FL (87-102); Mean Platelet Volume 9.5 FL (9.6-12.0); Monocytes # 0.4 10*3/uL (0.11-0.8); Neutrophils # 10.1 10*3/uL (1.4-7.4); Platelet Count 96 T/CUMM (130-400); Red Blood Count 3.07 MC/CUMM (3.8-5.5); Red Cell Distribution Width 15.9 % (9.3-17.3)
[2018-08-30 05:27] LABS: Calcium 6.8 MG/DL (8.5-10.1); Osmolality,Calculated 283.7 MOS/KG (273-304); Potassium 2.9 MMOL/L (3.5-5.1)
[2018-08-30 05:50] LABS: INR 1.6; PT Patient Result 16.9 SECS
[2018-08-30] MEDS: LEVOTHYROXINE 25 MCG TABLET PO SCH (06:23)
[2018-08-30 06:24] LABS: Anisocytosis 1+; Band Neutrophils 1 % (0-10); Eosinophils 1 % (0-10); Hypochromasia 1+; Lymphocytes 5 % (20-55); Segmented Neutrophils 89 % (50-85); Total Cells Counted 100
[2018-08-30 06:25] LABS: Platelet Estimate Decreased
[2018-08-30] MEDS: NOREPINEPHRINE 8 MG in SODIUM CHLORIDE 0.9% 242 ML IV PRN (06:25)
[2018-08-30] MEDS: CALCIUM ACETATE 667 MG CAPSULE PO SCH ×3 (08:21→17:07)
[2018-08-30] MEDS: ASPIRIN EC 81 MG TABLET PO SCH (08:21)
[2018-08-30] MEDS: PANTOPRAZOLE 40 MG TABLET PO SCH (08:21)
[2018-08-30] MEDS: CHOLESTYRAMINE/ASPARTAME 4 GM PACK PO SCH ×2 (08:57→21:19)
[2018-08-30] MEDS: DESITIN 4OZ/NYSTATIN 15 GRAM MIXTURE PASTE TOP SCH ×2 (09:14→21:22)
[2018-08-30 11:48] LABS: Hematocrit 25.5 VOL% (35.7-47.0); Hemoglobin 8.3 GM/DL (12.0-16.0)
[2018-08-30] MEDS: DEXTROSE 50% 25 GM/50 ML SYRINGE IV PRN (16:39)
[2018-08-30] MEDS ORDERED: VANCOMYCIN INJ 500 MG in SODIUM CHLORIDE 0.9% 100 ML IV ONE (17:00)
[2018-08-30] MEDS: cefTRIAXone 1,000 MG in SYRINGE 1 EACH IV SCH (17:22)
[2018-08-30 19:37] LABS: Hematocrit 26.6 VOL% (35.7-47.0); Hemoglobin 8.5 GM/DL (12.0-16.0)
[2018-08-31] MEDS: metroNIDAZOLE INJ 500 MG in PREMIX 1 EACH IV SCH ×4 (04:03→21:35)
[2018-08-31] MEDS: NOREPINEPHRINE 8 MG in SODIUM CHLORIDE 0.9% 242 ML IV PRN ×2 (04:20→20:45)
[2018-08-31 05:02] LABS: Calcium 7.2 MG/DL (8.5-10.1); Osmolality,Calculated 277.7 MOS/KG (273-304); Potassium 2.8 MMOL/L (3.5-5.1)
[2018-08-31] MEDS: LEVOTHYROXINE 25 MCG TABLET PO SCH (07:00)
[2018-08-31] MEDS: POTASSIUM CHLORIDE 20 MEQ TABLET PO SCH ×2 (08:30→11:52)
[2018-08-31] MEDS: CHOLESTYRAMINE/ASPARTAME 4 GM PACK PO SCH ×2 (08:30→21:34)
[2018-08-31] MEDS: CALCIUM ACETATE 667 MG CAPSULE PO SCH ×3 (08:45→16:41)
[2018-08-31] MEDS: ASPIRIN EC 81 MG TABLET PO SCH (08:45)
[2018-08-31] MEDS: PANTOPRAZOLE 40 MG TABLET PO SCH (08:45)
[2018-08-31] MEDS: DEXTROSE 50% 25 GM/50 ML SYRINGE IV PRN (09:37)
[2018-08-31] MEDS ORDERED: DEXAMETHASONE 4 MG/1 ML VIAL IV ONE (09:53)
[2018-08-31] MEDS: HYDROCORTISONE 10 MG TABLET PO SCH ×2 (11:52→21:34)
[2018-08-31] MEDS: DESITIN 4OZ/NYSTATIN 15 GRAM MIXTURE PASTE TOP SCH ×2 (11:53→21:34)
[2018-08-31] MEDS: cefTRIAXone 1,000 MG in SYRINGE 1 EACH IV SCH (17:17)
[2018-09-01] MEDS: metroNIDAZOLE INJ 500 MG in PREMIX 1 EACH IV SCH (05:25)
[2018-09-01 05:26] LABS: Basophils % 0.5 % (0.0-0.8); Hematocrit 27.6 VOL% (35.7-47.0); Hemoglobin 8.6 GM/DL (12.0-16.0); Immature Granulocytes % 0.5 %; Immature Granulocytes Absolute 0.03 #; Lymphocytes # 0.8 10*3/uL (1.4-4.0); Lymphocytes % 14.5 % (21.3-54.2); Mean Corpuscular HGB Conc 31.2 GM/DL (32-36); Mean Corpuscular Hemoglobin 27 PG (27-34); Mean Corpuscular Volume 87.1 FL (87-102); Mean Platelet Volume 10.9 FL (9.6-12.0); Monocytes # 0.3 10*3/uL (0.11-0.8); Monocytes % 5.1 % (1.7-12.7); Neutrophils # 4.4 10*3/uL (1.4-7.4); Neutrophils % 79.4 % (38.7-73.9); Platelet Count 61 T/CUMM (130-400); Red Blood Count 3.17 MC/CUMM (3.8-5.5); Red Cell Distribution Width 16.1 % (9.3-17.3); White Blood Count 5.5 T/CUMM (4-12)
[2018-09-01 05:42] LABS: Calcium 7.7 MG/DL (8.5-10.1); Osmolality,Calculated 286.8 MOS/KG (273-304); Potassium 3.5 MMOL/L (3.5-5.1)
[2018-09-01] MEDS: LEVOTHYROXINE 25 MCG TABLET PO SCH (06:31)
[2018-09-01] MEDS: CALCIUM ACETATE 667 MG CAPSULE PO SCH ×3 (07:44→17:52)
[2018-09-01] MEDS ORDERED: DEXTROSE 50% 25 GM/50 ML VIAL IV PRN (08:07)
[2018-09-01] MEDS ORDERED: GLUCAGON 1 MG VIAL IM PRN (08:07)
[2018-09-01] MEDS: PANTOPRAZOLE 40 MG TABLET PO SCH (08:55)
[2018-09-01] MEDS: HYDROCORTISONE 10 MG TABLET PO SCH (08:55)
[2018-09-01] MEDS: MIDODRINE 5 MG TABLET PO SCH ×4 (08:55→20:43)
[2018-09-01] MEDS: CHOLESTYRAMINE/ASPARTAME 4 GM PACK PO SCH ×3 (08:55→20:44)
[2018-09-01] MEDS: ASPIRIN EC 81 MG TABLET PO SCH (08:55)
[2018-09-01] MEDS: DESITIN 4OZ/NYSTATIN 15 GRAM MIXTURE PASTE TOP SCH ×2 (08:56→20:44)
[2018-09-01 09:23] LABS: Atypical Lymphocytes Few; Band Neutrophils 1 % (0-10); Lymphocytes 6 % (20-55); Platelet Estimate Decreased; Polychromasia Slight; Segmented Neutrophils 92 % (50-85); Total Cells Counted 100
[2018-09-01] MEDS: INSULIN REGULAR 100 UNIT/ML SUBCUT SCH ×4 (11:52→20:43)
[2018-09-01 14:47] LABS: INR 2.6
[2018-09-01 14:48] LABS: Partial Thromboplastin Time 66.5 SECS (0-40)
[2018-09-02 05:45] LABS: Hematocrit 24.1 VOL% (35.7-47.0); Hemoglobin 7.6 GM/DL (12.0-16.0); Immature Granulocytes % 0.6 %; Immature Granulocytes Absolute 0.05 #; Lymphocytes # 0.8 10*3/uL (1.4-4.0); Lymphocytes % 9.3 % (21.3-54.2); Mean Corpuscular HGB Conc 31.5 GM/DL (32-36); Mean Corpuscular Hemoglobin 27 PG (27-34); Mean Platelet Volume 11.6 FL (9.6-12.0); Monocytes # 0.3 10*3/uL (0.11-0.8); Monocytes % 3.4 % (1.7-12.7); Neutrophils # 7.7 10*3/uL (1.4-7.4); Neutrophils % 86.7 % (38.7-73.9); Platelet Count 60 T/CUMM (130-400); Red Blood Count 2.77 MC/CUMM (3.8-5.5); White Blood Count 8.9 T/CUMM (4-12)
[2018-09-02 06:03] LABS: Calcium 7.9 MG/DL (8.5-10.1); Osmolality,Calculated 282.4 MOS/KG (273-304); Potassium 3.2 MMOL/L (3.5-5.1)
[2018-09-02 06:23] LABS: Hypochromasia Slight; Platelet Estimate Decreased; Polychromasia Few
[2018-09-02] MEDS: LEVOTHYROXINE 25 MCG TABLET PO SCH (06:29)
[2018-09-02] MEDS ORDERED: FAMOTIDINE 20 MG TABLET PO SCH (09:00)
[2018-09-02] MEDS: INSULIN REGULAR 100 UNIT/ML SUBCUT SCH ×2 (09:03→12:03)
[2018-09-02] MEDS: DESITIN 4OZ/NYSTATIN 15 GRAM MIXTURE PASTE TOP SCH (09:03)
[2018-09-02] MEDS: CALCIUM ACETATE 667 MG CAPSULE PO SCH ×2 (09:03→12:03)
[2018-09-02] MEDS: MIDODRINE 5 MG TABLET PO SCH (09:03)
[2018-09-02] MEDS: CHOLESTYRAMINE/ASPARTAME 4 GM PACK PO SCH (09:03)
[2018-09-02] MEDS ORDERED: POTASSIUM CHLORIDE 20 MEQ TABLET PO ONE (09:41)
[2018-09-02 13:02] VITALS: BP 95/52
[2018-09-04 18:05] LABS: HIT Interpretation Negative (Negative)
== END 2018-09-02 13:04 | disposition home or self-care (01) | DRG 377 ==
LOC: EDUNIT# → EDBD → N.ED 12:33 → SUATTDRO 15:06 → N.EDINP 15:06 → N.ICU 15:53
PROVIDERS: ADMIT Internal Medicine; ATTEND Internal Medicine

== ENCOUNTER 2018-09-22 12:07 | Inpatient (IN) ==
[2018-09-22 13:09] LABS: Basophils # 0.1 10*3/uL (0.0-0.2); Basophils % 2.1 % (0.0-0.8); Eosinophils # 0.1 10*3/uL (0.0-0.87); Eosinophils % 2.5 % (0.00-10.9); Hematocrit 23.2 VOL% (35.7-47.0); Hemoglobin 7.4 GM/DL (12.0-16.0); Immature Granulocytes % 0.4 %; Immature Granulocytes Absolute 0.02 #; Lymphocytes # 1.4 10*3/uL (1.4-4.0); Lymphocytes % 24.4 % (21.3-54.2); Mean Corpuscular HGB Conc 31.9 GM/DL (32-36); Mean Corpuscular Hemoglobin 27 PG (27-34); Mean Corpuscular Volume 84.4 FL (87-102); Mean Platelet Volume 9.3 FL (9.6-12.0); Monocytes # 0.3 10*3/uL (0.11-0.8); Monocytes % 5.3 % (1.7-12.7); Neutrophils # 3.7 10*3/uL (1.4-7.4); Neutrophils % 65.3 % (38.7-73.9); Platelet Count 124 T/CUMM (130-400); Red Blood Count 2.75 MC/CUMM (3.8-5.5); White Blood Count 5.6 T/CUMM (4-12)
[2018-09-22 13:24] LABS: Calcium 6.4 MG/DL (8.5-10.1); Osmolality,Calculated 248.2 MOS/KG (273-304); Potassium 3.3 MMOL/L (3.5-5.1)
[2018-09-22] MEDS ORDERED: ACETAMINOPHEN 325 MG TABLET PO PRN (13:31)
[2018-09-22] MEDS ORDERED: POTASSIUM CHLORIDE 20 MEQ TABLET PO PRN (13:34)
[2018-09-22] MEDS ORDERED: EPOETIN ALFA 10,000 UNIT/1 ML VIAL IV PRN (15:18)
[2018-09-22] MEDS ORDERED: ONDANSETRON 4 MG/2 ML VIAL IV PRN (16:25)
[2018-09-22] MEDS ORDERED: CALCIUM ACETATE 667 MG CAPSULE PO SCH (18:00)
[2018-09-22] MEDS ORDERED: GLUCAGON 1 MG VIAL ONE (18:08)
[2018-09-22] MEDS ORDERED: GLUCAGON 1 MG VIAL SUBCUT PRN (18:10)
[2018-09-22] MEDS: MIDODRINE 5 MG TABLET PO SCH (19:13)
[2018-09-22] MEDS ORDERED: PROPOFOL 1,000 MG/100 ML BOTTLE IV ONE (22:07)
[2018-09-22 22:40] LABS: Basophils # 0.1 10*3/uL (0.0-0.2); Basophils % 0.6 % (0.0-0.8); Eosinophils # 0.3 10*3/uL (0.0-0.87); Eosinophils % 1.7 % (0.00-10.9); Hematocrit 19.9 VOL% (35.7-47.0); Immature Granulocytes % 0.8 %; Immature Granulocytes Absolute 0.11 #; Lymphocytes # 2.9 10*3/uL (1.4-4.0); Lymphocytes % 19.8 % (21.3-54.2); Mean Corpuscular HGB Conc 31.7 GM/DL (32-36); Mean Corpuscular Hemoglobin 27 PG (27-34); Mean Corpuscular Volume 85.8 FL (87-102); Mean Platelet Volume 9.7 FL (9.6-12.0); Monocytes # 0.4 10*3/uL (0.11-0.8); Monocytes % 2.8 % (1.7-12.7); Neutrophils # 10.8 10*3/uL (1.4-7.4); Neutrophils % 74.3 % (38.7-73.9); Platelet Count 105 T/CUMM (130-400); Red Blood Count 2.32 MC/CUMM (3.8-5.5); Red Cell Distribution Width 17.9 % (9.3-17.3); White Blood Count 14.5 T/CUMM (4-12)
[2018-09-22 22:42] LABS: Hemoglobin 6.3 GM/DL (12.0-16.0)
[2018-09-22 22:48] LABS: Allen Test Positive; Pt O2 Delivery Device Ventilator
[2018-09-22 22:49] LABS: ABG Base Excess 0.1 MMOL/L (-2.5-2.5); ABG HCO3 24.5 MMOL/L (20-26); ABG PCO2 42.2 MM HG (35-48); ABG PH 7.383 (7.35-7.45)
[2018-09-22 22:50] LABS: INR 1.4; Partial Thromboplastin Time 40.1 SECS (0-40)
[2018-09-22 23:00] LABS: Albumin 1.6 G/DL (3.4-5.0); Bilirubin,Total 1.1 MG/DL (0.2-1.0); Calcium 7.2 MG/DL (8.5-10.1); Osmolality,Calculated 262.9 MOS/KG (273-304); Potassium 3.2 MMOL/L (3.5-5.1); Total Protein 5.5 G/DL (6.4-8.3); Troponin I 0.021 NG/ML (0.00-0.045)
[2018-09-23] MEDS: PROPOFOL 1,000 MG/100 ML BOTTLE IV SCH (02:07)
[2018-09-23] MEDS: MIDODRINE 5 MG TABLET PO SCH ×4 (02:09→22:23)
[2018-09-23] MEDS: CHOLESTYRAMINE/ASPARTAME 4 GM PACK PO SCH ×3 (02:09→22:23)
[2018-09-23 04:42] LABS: Platelet Estimate Decreased; Polychromasia Few
[2018-09-23] MEDS ORDERED: SODIUM CHLORIDE 0.9% 250 ML IV ONE (05:00)
[2018-09-23] MEDS ORDERED: DEXTROSE 50% 25 GM/50 ML SYRINGE IV ONE ×2 (05:08→05:09)
[2018-09-23 05:10] LABS: Basophils # 0.1 10*3/uL (0.0-0.2); Basophils % 0.7 % (0.0-0.8); Eosinophils # 0.1 10*3/uL (0.0-0.87); Eosinophils % 0.8 % (0.00-10.9); Hematocrit 19.3 VOL% (35.7-47.0); Immature Granulocytes % 0.4 %; Immature Granulocytes Absolute 0.05 #; Lymphocytes # 1.1 10*3/uL (1.4-4.0); Lymphocytes % 9.6 % (21.3-54.2); Mean Corpuscular HGB Conc 32.1 GM/DL (32-36); Mean Corpuscular Hemoglobin 27 PG (27-34); Mean Corpuscular Volume 84.6 FL (87-102); Mean Platelet Volume 10.3 FL (9.6-12.0); Monocytes # 0.9 10*3/uL (0.11-0.8); Neutrophils % 80.5 % (38.7-73.9); Red Blood Count 2.28 MC/CUMM (3.8-5.5); White Blood Count 11.2 T/CUMM (4-12)
[2018-09-23 05:32] LABS: Hemoglobin 6.2 GM/DL (12.0-16.0)
[2018-09-23 05:33] LABS: Platelet Count 80 T/CUMM (130-400)
[2018-09-23 05:39] LABS: Calcium 7.4 MG/DL (8.5-10.1); Osmolality,Calculated 262.7 MOS/KG (273-304); Potassium 2.9 MMOL/L (3.5-5.1); Risk Ratio 2.75; Thyroid Stimulating Hormone 14.9 uIU/ml (0.358-3.74); VLDL CHOLESTEROL 14.8 MG/DL
[2018-09-23 05:46] LABS: Platelet Estimate Decreased; Polychromasia Few
[2018-09-23 07:15] LABS: ABG Base Excess 3.1 MMOL/L (-2.5-2.5); ABG HCO3 27.2 MMOL/L (20-26); ABG PCO2 37.2 MM HG (35-48); ABG PH 7.468 (7.35-7.45); ABG TCO2 25.5 MMOL/L (23-27)
[2018-09-23] MEDS: LEVOTHYROXINE 25 MCG TABLET PO SCH (07:28)
[2018-09-23] MEDS ORDERED: SODIUM CHLORIDE 0.9% 1,000 ML IV PRN ×2 (08:30→10:26)
[2018-09-23] MEDS: CALCIUM ACETATE 667 MG CAPSULE PO SCH ×3 (08:38→16:50)
[2018-09-23] MEDS: FAMOTIDINE 20 MG TABLET PO SCH (08:39)
[2018-09-23] MEDS ORDERED: PANTOPRAZOLE 40 MG TABLET PO SCH (09:00)
[2018-09-23] MEDS ORDERED: GLUCAGON 1 MG VIAL IM PRN (10:23)
[2018-09-23] MEDS ORDERED: LANSOPRAZOLE ODT 30 MG TABLET PER TUBE SCH (10:30)
[2018-09-23] MEDS: POTASSIUM CHLORIDE 20 MEQ/15 ML UDCUP PO PRN ×3 (11:16→16:50)
[2018-09-23] MEDS: INSULIN REGULAR 100 UNIT/ML SUBCUT SCH (12:48)
[2018-09-23] MEDS: DEXTROSE 50% 25 GM/50 ML SYRINGE IV PRN ×4 (13:04→23:17)
[2018-09-23 19:13] LABS: Hematocrit 34.4 VOL% (35.7-47.0); Hemoglobin 11.2 GM/DL (12.0-16.0)
[2018-09-24 04:51] LABS: ABG Base Excess 1.2 MMOL/L (-2.5-2.5); ABG HCO3 25.5 MMOL/L (20-26); ABG Oxygen Saturation 98.8 % (95-100); ABG PCO2 35.1 MM HG (35-48); ABG PH 7.456 (7.35-7.45); Allen Test Positive; Pt O2 Delivery Device Ventilator
[2018-09-24] MEDS: PROPOFOL 1,000 MG/100 ML BOTTLE IV SCH ×2 (05:06→22:49)
[2018-09-24 05:39] LABS: Basophils # 0.2 10*3/uL (0.0-0.2); Basophils % 1.1 % (0.0-0.8); Eosinophils # 0.4 10*3/uL (0.0-0.87); Eosinophils % 2.4 % (0.00-10.9); Hematocrit 35.1 VOL% (35.7-47.0); Hemoglobin 11.5 GM/DL (12.0-16.0); Immature Granulocytes Absolute 0.15 #; Lymphocytes # 1.5 10*3/uL (1.4-4.0); Lymphocytes % 9.9 % (21.3-54.2); Mean Corpuscular HGB Conc 32.8 GM/DL (32-36); Mean Corpuscular Hemoglobin 26 PG (27-34); Mean Corpuscular Volume 80.5 FL (87-102); Mean Platelet Volume 10.5 FL (9.6-12.0); Monocytes # 0.5 10*3/uL (0.11-0.8); NRBC # 0.03 10*3/uL; Neutrophils # 12.4 10*3/uL (1.4-7.4); Neutrophils % 82.6 % (38.7-73.9); Red Blood Count 4.36 MC/CUMM (3.8-5.5); Red Cell Distribution Width 17.3 % (9.3-17.3)
[2018-09-24 05:42] LABS: Platelet Count 65 T/CUMM (130-400)
[2018-09-24 05:52] LABS: Calcium 7.1 MG/DL (8.5-10.1); Osmolality,Calculated 261.8 MOS/KG (273-304); Potassium 4.1 MMOL/L (3.5-5.1)
[2018-09-24 05:57] LABS: Hypochromasia 1+; Microcytosis 1+; Platelet Estimate Decreased; Polychromasia Slight; Prealbumin 3.1 MG/DL (20-40); Target Cells Slight
[2018-09-24] MEDS: LEVOTHYROXINE 25 MCG TABLET PO SCH (07:49)
[2018-09-24] MEDS ORDERED: PHENYLEPHRINE DRIP 40 MG/250 ML PREMIX IV ONE (08:27)
[2018-09-24] MEDS: PHENYLEPHRINE DRIP 40 MG/250 ML PREMIX IV PRN (08:32)
[2018-09-24] MEDS: CHOLESTYRAMINE/ASPARTAME 4 GM PACK PO SCH ×2 (09:29→21:29)
[2018-09-24] MEDS: CALCIUM ACETATE 667 MG CAPSULE PO SCH ×3 (09:35→16:08)
[2018-09-24] MEDS: FAMOTIDINE 20 MG TABLET PO SCH (09:36)
[2018-09-24] MEDS: MIDODRINE 5 MG TABLET PO SCH ×3 (09:36→21:28)
[2018-09-24] MEDS: DEXTROSE 50% 25 GM/50 ML SYRINGE IV PRN ×3 (12:13→23:51)
[2018-09-24] MEDS: PHENYLEPHRINE INJ 80 MG in SODIUM CHLORIDE 0.9% 242 ML IV PRN ×3 (15:22→23:16)
[2018-09-24] MEDS ORDERED: MEROPENEM 500 MG in SYRINGE 1 EACH IV SCH (17:00)
[2018-09-25] MEDS: PROPOFOL 1,000 MG/100 ML BOTTLE IV SCH (02:24)
[2018-09-25] MEDS: DEXMEDETOMIDINE 200 MCG in SODIUM CHLORIDE 0.9% 48 ML IV PRN ×5 (02:31→21:01)
[2018-09-25] MEDS: PHENYLEPHRINE INJ 80 MG in SODIUM CHLORIDE 0.9% 242 ML IV PRN ×3 (02:59→11:59)
[2018-09-25 03:20] LABS: Allen Test Positive; Pt O2 Delivery Device Ventilator
[2018-09-25 03:21] LABS: ABG Base Excess -0.9 MMOL/L (-2.5-2.5); ABG HCO3 23.7 MMOL/L (20-26); ABG Oxygen Saturation 98.1 % (95-100); ABG PCO2 38.4 MM HG (35-48); ABG PH 7.398 (7.35-7.45)
[2018-09-25 04:15] LABS: Basophils # 0.2 10*3/uL (0.0-0.2); Eosinophils # 0.2 10*3/uL (0.0-0.87); Eosinophils % 1.3 % (0.00-10.9); Hematocrit 37.1 VOL% (35.7-47.0); Hemoglobin 11.6 GM/DL (12.0-16.0); Immature Granulocytes % 0.8 %; Immature Granulocytes Absolute 0.15 #; Lymphocytes % 5.5 % (21.3-54.2); Mean Corpuscular HGB Conc 31.3 GM/DL (32-36); Mean Corpuscular Hemoglobin 26 PG (27-34); Mean Corpuscular Volume 82.4 FL (87-102); Mean Platelet Volume 10.5 FL (9.6-12.0); Monocytes # 0.6 10*3/uL (0.11-0.8); Monocytes % 3.4 % (1.7-12.7); NRBC # 0.03 10*3/uL; Neutrophils # 16.1 10*3/uL (1.4-7.4); Red Cell Distribution Width 18.2 % (9.3-17.3); White Blood Count 18.4 T/CUMM (4-12)
[2018-09-25 04:33] LABS: Platelet Count 42 T/CUMM (130-400)
[2018-09-25 04:38] LABS: Band Neutrophils 2 % (0-10); Lymphocytes 5 % (20-55); Platelet Estimate Decreased; Segmented Neutrophils 91 % (50-85); Total Cells Counted 100
[2018-09-25 04:39] LABS: Hypochromasia 2+
[2018-09-25 04:42] LABS: Calcium 7.4 MG/DL (8.5-10.1); Osmolality,Calculated 262.5 MOS/KG (273-304); Potassium 3.8 MMOL/L (3.5-5.1)
[2018-09-25] MEDS: DEXTROSE 50% 25 GM/50 ML SYRINGE IV PRN (06:20)
[2018-09-25] MEDS: LEVOTHYROXINE 25 MCG TABLET PO SCH (06:20)
[2018-09-25] MEDS: FAMOTIDINE 20 MG TABLET PO SCH (09:29)
[2018-09-25] MEDS: CALCIUM ACETATE 667 MG CAPSULE PO SCH ×3 (09:29→17:32)
[2018-09-25] MEDS: MIDODRINE 5 MG TABLET PO SCH ×3 (09:30→21:38)
[2018-09-25] MEDS: CHOLESTYRAMINE/ASPARTAME 4 GM PACK PO SCH ×2 (09:30→21:38)
[2018-09-25] MEDS: CLINDAMYCIN INJ 600 MG in PREMIX 1 EACH IV SCH ×2 (15:57→23:33)
[2018-09-25] MEDS ORDERED: TIGECYCLINE 100 MG in SODIUM CHLORIDE 0.9% 100 ML IV ONE (19:00)
[2018-09-26] MEDS: PHENYLEPHRINE INJ 80 MG in SODIUM CHLORIDE 0.9% 242 ML IV PRN (00:33)
[2018-09-26] MEDS: DEXMEDETOMIDINE 200 MCG in SODIUM CHLORIDE 0.9% 48 ML IV PRN ×6 (01:06→23:24)
[2018-09-26 03:51] LABS: Allen Test Positive; Pt O2 Delivery Device Ventilator
[2018-09-26 05:52] LABS: Basophils # 0.2 10*3/uL (0.0-0.2); Basophils % 1.3 % (0.0-0.8); Hematocrit 33.5 VOL% (35.7-47.0); Hemoglobin 10.7 GM/DL (12.0-16.0); Immature Granulocytes % 0.5 %; Immature Granulocytes Absolute 0.07 #; Lymphocytes # 0.9 10*3/uL (1.4-4.0); Mean Corpuscular HGB Conc 31.9 GM/DL (32-36); Mean Corpuscular Hemoglobin 26 PG (27-34); Mean Corpuscular Volume 82.5 FL (87-102); Mean Platelet Volume 9.8 FL (9.6-12.0); Monocytes # 0.5 10*3/uL (0.11-0.8); Monocytes % 3.6 % (1.7-12.7); NRBC # 0.02 10*3/uL; Neutrophils # 11.5 10*3/uL (1.4-7.4); Neutrophils % 81.6 % (38.7-73.9); Red Blood Count 4.06 MC/CUMM (3.8-5.5); Red Cell Distribution Width 18.7 % (9.3-17.3); White Blood Count 14.1 T/CUMM (4-12)
[2018-09-26 06:03] LABS: ABG Base Excess -4.5 MMOL/L (-2.5-2.5); ABG HCO3 20.7 MMOL/L (20-26); ABG Oxygen Saturation 99.5 % (95-100); ABG PCO2 30.4 MM HG (35-48); ABG PH 7.408 (7.35-7.45); ABG TCO2 17.1 MMOL/L (23-27)
[2018-09-26 06:11] LABS: Platelet Count 19 T/CUMM (130-400)
[2018-09-26 06:12] LABS: Calcium 7.7 MG/DL (8.5-10.1); Osmolality,Calculated 268.4 MOS/KG (273-304); Potassium 3.5 MMOL/L (3.5-5.1)
[2018-09-26 06:24] LABS: Band Neutrophils 4 % (0-10); Burr Cells Slight; Eosinophils 3 % (0-10); Hypochromasia 1+; Lymphocytes 6 % (20-55); Nucleated Red Blood Cells 1 (0-5); Segmented Neutrophils 86 % (50-85); Target Cells Slight; Total Cells Counted 100
[2018-09-26 06:25] LABS: Microcytosis 1+; Ovalocytes Slight; Platelet Estimate Decreased
[2018-09-26] MEDS: CLINDAMYCIN INJ 600 MG in PREMIX 1 EACH IV SCH (06:59)
[2018-09-26] MEDS: LEVOTHYROXINE 25 MCG TABLET PO SCH (06:59)
[2018-09-26] MEDS: CHOLESTYRAMINE/ASPARTAME 4 GM PACK PO SCH ×2 (08:00→21:35)
[2018-09-26] MEDS: MIDODRINE 5 MG TABLET PO SCH ×3 (08:00→21:35)
[2018-09-26] MEDS: FAMOTIDINE 20 MG TABLET PO SCH (08:00)
[2018-09-26] MEDS: CALCIUM ACETATE 667 MG CAPSULE PO SCH ×3 (08:01→17:52)
[2018-09-26] MEDS ORDERED: TIGECYCLINE 50 MG in SODIUM CHLORIDE 0.9% 100 ML IV SCH (09:00)
[2018-09-26] MEDS: DEXTROSE 50% 25 GM/50 ML SYRINGE IV PRN ×2 (18:24→18:25)
[2018-09-26 23:34] LABS: Albumin 0.7 G/DL (3.4-5.0); Alkaline Phosphatase 186 U/L (45-117); Blood Urea Nitrogen 14 MG/DL (7-18); Calcium 7.7 MG/DL (8.5-10.1); Glucose 124 MG/DL (74-106); Osmolality,Calculated 269.2 MOS/KG (273-304); Potassium 3.9 MMOL/L (3.5-5.1); Sodium 134 MMOL/L (136-145); Total Protein 4.7 G/DL (6.4-8.3)
[2018-09-26 23:47] LABS: Alanine Aminotransferase 15 U/L (13-56); Aspartate Amino Transferase 58 U/L (0-37)
[2018-09-27] MEDS: DEXMEDETOMIDINE 200 MCG in SODIUM CHLORIDE 0.9% 48 ML IV PRN ×5 (02:59→20:10)
[2018-09-27 04:51] LABS: ABG Base Excess -2.9 MMOL/L (-2.5-2.5); ABG Oxygen Saturation 98.9 % (95-100); ABG PCO2 32.9 MM HG (35-48); ABG PH 7.412 (7.35-7.45); ABG TCO2 18.7 MMOL/L (23-27); Allen Test Positive; Pt O2 Delivery Device Ventilator
[2018-09-27 05:46] LABS: Basophils # 0.2 10*3/uL (0.0-0.2); Basophils % 1.6 % (0.0-0.8); Eosinophils # 0.9 10*3/uL (0.0-0.87); Eosinophils % 7.3 % (0.00-10.9); Hematocrit 36.3 VOL% (35.7-47.0); Hemoglobin 11.6 GM/DL (12.0-16.0); Immature Granulocytes % 0.8 %; Immature Granulocytes Absolute 0.09 #; Lymphocytes % 8.5 % (21.3-54.2); Mean Corpuscular Hemoglobin 27 PG (27-34); Mean Corpuscular Volume 83.1 FL (87-102); Monocytes # 0.6 10*3/uL (0.11-0.8); Monocytes % 4.9 % (1.7-12.7); NRBC # 0.03 10*3/uL; Neutrophils # 9.1 10*3/uL (1.4-7.4); Neutrophils % 76.9 % (38.7-73.9); Red Blood Count 4.37 MC/CUMM (3.8-5.5); Red Cell Distribution Width 19.9 % (9.3-17.3); White Blood Count 11.8 T/CUMM (4-12)
[2018-09-27 05:47] LABS: Platelet Count 29 T/CUMM (130-400)
[2018-09-27] MEDS: LEVOTHYROXINE 25 MCG TABLET PO SCH (06:47)
[2018-09-27 07:14] LABS: Calcium 7.6 MG/DL (8.5-10.1); Osmolality,Calculated 264.7 MOS/KG (273-304); Potassium 5.8 MMOL/L (3.5-5.1)
[2018-09-27] MEDS: CALCIUM ACETATE 667 MG CAPSULE PO SCH ×3 (08:09→17:05)
[2018-09-27] MEDS: FAMOTIDINE 20 MG TABLET PO SCH (08:09)
[2018-09-27] MEDS: CHOLESTYRAMINE/ASPARTAME 4 GM PACK PO SCH ×2 (08:09→21:45)
[2018-09-27] MEDS: MIDODRINE 5 MG TABLET PO SCH ×3 (08:09→21:46)
[2018-09-27] MEDS ORDERED: SODIUM CHLORIDE 0.45% IV SCH (11:00)
[2018-09-27] MEDS ORDERED: SODIUM BICARB IV SCH (11:00)
[2018-09-27] MEDS ORDERED: PROPOFOL 1,000 MG/100 ML BOTTLE IV ONE (16:47)
[2018-09-27] MEDS: PROPOFOL 1,000 MG/100 ML BOTTLE IV SCH (16:56)
[2018-09-28 04:16] LABS: ABG Base Excess -2.1 MMOL/L (-2.5-2.5); ABG Oxygen Saturation 97.7 % (95-100); ABG PCO2 26.5 MM HG (35-48); ABG PH 7.495 (7.35-7.45); ABG PO2 102.3 MM HG (80-95); ABG TCO2 20.8 MMOL/L (23-27); Allen Test Positive; Pt O2 Delivery Device Ventilator
[2018-09-28] MEDS: PROPOFOL 1,000 MG/100 ML BOTTLE IV SCH ×4 (05:54→20:30)
[2018-09-28] MEDS: LEVOTHYROXINE 25 MCG TABLET PO SCH (06:18)
[2018-09-28] MEDS: CALCIUM ACETATE 667 MG CAPSULE PO SCH ×3 (08:06→17:11)
[2018-09-28] MEDS: CHOLESTYRAMINE/ASPARTAME 4 GM PACK PO SCH ×2 (08:06→21:49)
[2018-09-28] MEDS: FAMOTIDINE 20 MG TABLET PO SCH (08:06)
[2018-09-28] MEDS: MIDODRINE 5 MG TABLET PO SCH ×3 (08:06→21:49)
[2018-09-28 12:46] LABS: Albumin 1.1 G/DL (3.4-5.0); Bilirubin,Total 6.1 MG/DL (0.2-1.0); Calcium 7.6 MG/DL (8.5-10.1); Osmolality,Calculated 269.2 MOS/KG (273-304); Potassium 3.7 MMOL/L (3.5-5.1); Total Protein 4.2 G/DL (6.4-8.3)
[2018-09-28 13:50] LABS: Basophils # 0.1 10*3/uL (0.0-0.2); Basophils % 1.8 % (0.0-0.8); Eosinophils # 0.7 10*3/uL (0.0-0.87); Eosinophils % 9.5 % (0.00-10.9); Hematocrit 32.2 VOL% (35.7-47.0); Hemoglobin 10.6 GM/DL (12.0-16.0); Immature Granulocytes % 1.1 %; Immature Granulocytes Absolute 0.08 #; Lymphocytes # 1.2 10*3/uL (1.4-4.0); Lymphocytes % 16.8 % (21.3-54.2); Mean Corpuscular HGB Conc 32.9 GM/DL (32-36); Mean Corpuscular Hemoglobin 27 PG (27-34); Mean Corpuscular Volume 80.5 FL (87-102); Monocytes # 0.5 10*3/uL (0.11-0.8); Monocytes % 6.4 % (1.7-12.7); NRBC # 0.08 10*3/uL; Neutrophils # 4.8 10*3/uL (1.4-7.4); Neutrophils % 64.4 % (38.7-73.9); Red Cell Distribution Width 19.5 % (9.3-17.3); White Blood Count 7.4 T/CUMM (4-12)
[2018-09-28 13:54] LABS: Platelet Count 6 T/CUMM (130-400)
[2018-09-28] MEDS ORDERED: SODIUM CHLORIDE 0.9% 1,000 ML IV PRN (14:39)
[2018-09-28 15:42] LABS: Band Neutrophils 4 % (0-10); Eosinophils 3 % (0-10); Lymphocytes 10 % (20-55); Platelet Estimate Decreased; Segmented Neutrophils 78 % (50-85); Total Cells Counted 100
[2018-09-28 15:43] LABS: Polychromasia Slight
[2018-09-28 15:44] LABS: Microcytosis Slight
[2018-09-29] MEDS: PROPOFOL 1,000 MG/100 ML BOTTLE IV SCH ×2 (01:30→11:47)
[2018-09-29 04:00] LABS: ABG Base Excess -2.2 MMOL/L (-2.5-2.5); ABG HCO3 20.8 MMOL/L (20-26); ABG Oxygen Saturation 96.3 % (95-100); ABG PCO2 29.8 MM HG (35-48); ABG PH 7.461 (7.35-7.45); ABG TCO2 21.7 MMOL/L (23-27); Allen Test Positive; Pt O2 Delivery Device Ventilator
[2018-09-29 04:15] LABS: Basophils # 0.1 10*3/uL (0.0-0.2); Basophils % 1.7 % (0.0-0.8); Eosinophils # 0.5 10*3/uL (0.0-0.87); Eosinophils % 7.9 % (0.00-10.9); Hematocrit 29.4 VOL% (35.7-47.0); Hemoglobin 9.3 GM/DL (12.0-16.0); Immature Granulocytes % 0.9 %; Immature Granulocytes Absolute 0.06 #; Lymphocytes # 1.4 10*3/uL (1.4-4.0); Lymphocytes % 21.2 % (21.3-54.2); Mean Corpuscular HGB Conc 31.6 GM/DL (32-36); Mean Corpuscular Hemoglobin 26 PG (27-34); Mean Corpuscular Volume 82.1 FL (87-102); Mean Platelet Volume 9.9 FL (9.6-12.0); Monocytes # 0.3 10*3/uL (0.11-0.8); Monocytes % 5.2 % (1.7-12.7); NRBC # 0.03 10*3/uL; Neutrophils % 63.1 % (38.7-73.9); Red Blood Count 3.58 MC/CUMM (3.8-5.5); Red Cell Distribution Width 19.6 % (9.3-17.3); White Blood Count 6.4 T/CUMM (4-12)
[2018-09-29 04:19] LABS: Platelet Count 25 T/CUMM (130-400)
[2018-09-29 04:29] LABS: Calcium 7.7 MG/DL (8.5-10.1); Osmolality,Calculated 271.1 MOS/KG (273-304); Potassium 3.6 MMOL/L (3.5-5.1)
[2018-09-29 04:33] LABS: Prealbumin < 3.0 MG/DL (20-40)
[2018-09-29 05:05] LABS: Band Neutrophils 6 % (0-10); Eosinophils 7 % (0-10); Lymphocytes 14 % (20-55); Metamyelocytes 1 %; Nucleated Red Blood Cells 19 (0-5); Segmented Neutrophils 70 % (50-85); Total Cells Counted 100
[2018-09-29 05:06] LABS: Atypical Lymphocytes Few; Hypochromasia 1+; Microcytosis 1+
[2018-09-29 05:08] LABS: Burr Cells Few; Polychromasia Slight; Target Cells Few
[2018-09-29 05:09] LABS: Platelet Estimate Decreased
[2018-09-29] MEDS: LEVOTHYROXINE 25 MCG TABLET PO SCH (07:28)
[2018-09-29] MEDS: CALCIUM ACETATE 667 MG CAPSULE PO SCH ×3 (11:01→16:59)
[2018-09-29] MEDS: CHOLESTYRAMINE/ASPARTAME 4 GM PACK PO SCH ×3 (11:06→21:53)
[2018-09-29] MEDS: methylPREDNISolone SOD SUC 40 MG/1 ML VIAL IV SCH ×3 (11:07→23:32)
[2018-09-29] MEDS: MIDODRINE 5 MG TABLET PO SCH ×5 (11:07→23:34)
[2018-09-29] MEDS: FAMOTIDINE 20 MG TABLET PO SCH (11:07)
[2018-09-29] MEDS: NOREPINEPHRINE 16 MG in SODIUM CHLORIDE 0.9% 234 ML IV PRN ×3 (13:35→23:04)
[2018-09-29] MEDS ORDERED: METOCLOPRAMIDE 10 MG/2 ML VIAL IV ONE (22:55)
[2018-09-30] MEDS: PROPOFOL 1,000 MG/100 ML BOTTLE IV SCH ×4 (00:23→17:09)
[2018-09-30 04:15] LABS: ABG Base Excess -0.6 MMOL/L (-2.5-2.5); ABG HCO3 23.9 MMOL/L (20-26); ABG Oxygen Saturation 99.6 % (95-100); ABG PCO2 27.4 MM HG (35-48); ABG PH 7.504 (7.35-7.45); ABG TCO2 19.4 MMOL/L (23-27); Allen Test Positive; Pt O2 Delivery Device Ventilator
[2018-09-30 05:38] LABS: Calcium 7.6 MG/DL (8.5-10.1); Potassium 4.3 MMOL/L (3.5-5.1)
[2018-09-30 05:55] LABS: Basophils # 0.1 10*3/uL (0.0-0.2); Basophils % 0.7 % (0.0-0.8); Eosinophils % 0.3 % (0.00-10.9); Hematocrit 29.1 VOL% (35.7-47.0); Hemoglobin 9.6 GM/DL (12.0-16.0); Immature Granulocytes % 1.1 %; Immature Granulocytes Absolute 0.11 #; Lymphocytes # 2.5 10*3/uL (1.4-4.0); Lymphocytes % 23.9 % (21.3-54.2); Mean Corpuscular Hemoglobin 27 PG (27-34); Mean Corpuscular Volume 81.5 FL (87-102); Mean Platelet Volume 10.9 FL (9.6-12.0); Monocytes # 0.4 10*3/uL (0.11-0.8); NRBC # 0.25 10*3/uL; Neutrophils # 7.3 10*3/uL (1.4-7.4); Red Blood Count 3.57 MC/CUMM (3.8-5.5); Red Cell Distribution Width 19.9 % (9.3-17.3); White Blood Count 10.5 T/CUMM (4-12)
[2018-09-30 06:02] LABS: Platelet Count 31 T/CUMM (130-400)
[2018-09-30] MEDS: LEVOTHYROXINE 25 MCG TABLET PO SCH (06:20)
[2018-09-30 06:57] LABS: Band Neutrophils 4 % (0-10); Hypochromasia 1+; Lymphocytes 17 % (20-55); Microcytosis Slight; Nucleated Red Blood Cells 6 (0-5); Platelet Estimate Decreased; Segmented Neutrophils 76 % (50-85); Total Cells Counted 100
[2018-09-30 06:58] LABS: Atypical Lymphocytes Few
[2018-09-30] MEDS: CALCIUM ACETATE 667 MG CAPSULE PO SCH ×3 (08:37→17:35)
[2018-09-30] MEDS: FAMOTIDINE 20 MG TABLET PO SCH (08:47)
[2018-09-30] MEDS: MIDODRINE 5 MG TABLET PO SCH ×3 (08:47→21:55)
[2018-09-30] MEDS: methylPREDNISolone SOD SUC 40 MG/1 ML VIAL IV SCH ×2 (08:47→17:40)
[2018-10-01] MEDS: methylPREDNISolone SOD SUC 40 MG/1 ML VIAL IV SCH ×3 (00:40→15:37)
[2018-10-01] MEDS: PROPOFOL 1,000 MG/100 ML BOTTLE IV SCH ×2 (01:30→15:15)
[2018-10-01 06:20] LABS: Basophils % 0.4 % (0.0-0.8); Eosinophils % 0.1 % (0.00-10.9); Hematocrit 28.9 VOL% (35.7-47.0); Hemoglobin 9.1 GM/DL (12.0-16.0); Immature Granulocytes % 0.7 %; Immature Granulocytes Absolute 0.08 #; Lymphocytes # 2.4 10*3/uL (1.4-4.0); Lymphocytes % 21.9 % (21.3-54.2); Mean Corpuscular HGB Conc 31.5 GM/DL (32-36); Mean Corpuscular Hemoglobin 26 PG (27-34); Monocytes # 0.3 10*3/uL (0.11-0.8); Monocytes % 2.5 % (1.7-12.7); Neutrophils # 8.1 10*3/uL (1.4-7.4); Neutrophils % 74.4 % (38.7-73.9); Red Blood Count 3.48 MC/CUMM (3.8-5.5); Red Cell Distribution Width 20.4 % (9.3-17.3); White Blood Count 10.9 T/CUMM (4-12)
[2018-10-01 06:33] LABS: Platelet Count 21 T/CUMM (130-400)
[2018-10-01] MEDS: LEVOTHYROXINE 25 MCG TABLET PO SCH (06:40)
[2018-10-01 06:46] LABS: Osmolality,Calculated 275.1 MOS/KG (273-304)
[2018-10-01 06:52] LABS: Anisocytosis 1+; Band Neutrophils 13 % (0-10); Lymphocytes 12 % (20-55); Nucleated Red Blood Cells 5 (0-5); Platelet Estimate Decreased; Poikilocytosis 1+; Segmented Neutrophils 72 % (50-85); Smudge Cells 1+; Total Cells Counted 100
[2018-10-01 06:53] LABS: Macrocytosis Slight; Target Cells Few
[2018-10-01 07:15] LABS: Basophils % 0.4 % (0.0-0.8); Eosinophils % 0.4 % (0.00-10.9); Hematocrit 28.8 VOL% (35.7-47.0); Hemoglobin 9.4 GM/DL (12.0-16.0); Immature Granulocytes % 0.7 %; Immature Granulocytes Absolute 0.08 #; Lymphocytes # 2.4 10*3/uL (1.4-4.0); Lymphocytes % 21.1 % (21.3-54.2); Mean Corpuscular HGB Conc 32.6 GM/DL (32-36); Mean Corpuscular Hemoglobin 27 PG (27-34); Mean Corpuscular Volume 82.1 FL (87-102); Mean Platelet Volume 11.9 FL (9.6-12.0); Monocytes # 0.3 10*3/uL (0.11-0.8); Monocytes % 2.7 % (1.7-12.7); NRBC # 0.11 10*3/uL; Neutrophils # 8.4 10*3/uL (1.4-7.4); Neutrophils % 74.7 % (38.7-73.9); Red Blood Count 3.51 MC/CUMM (3.8-5.5); Red Cell Distribution Width 20.3 % (9.3-17.3); White Blood Count 11.2 T/CUMM (4-12)
[2018-10-01 07:17] LABS: Platelet Count 23 T/CUMM (130-400)
[2018-10-01 07:36] LABS: Band Neutrophils 18 % (0-10); Lymphocytes 9 % (20-55); Nucleated Red Blood Cells 2 (0-5); Platelet Estimate Decreased; Poikilocytosis 1+; Segmented Neutrophils 69 % (50-85); Total Cells Counted 100
[2018-10-01 07:37] LABS: Anisocytosis 1+; Macrocytosis Slight; Smudge Cells Few; Target Cells Few
[2018-10-01] MEDS: CALCIUM ACETATE 667 MG CAPSULE PO SCH ×3 (08:42→16:33)
[2018-10-01] MEDS: MIDODRINE 5 MG TABLET PO SCH ×3 (08:51→20:21)
[2018-10-01] MEDS: FAMOTIDINE 20 MG TABLET PO SCH (08:51)
[2018-10-01] MEDS: PHENYLEPHRINE INJ 80 MG in SODIUM CHLORIDE 0.9% 242 ML IV PRN ×2 (10:16→18:40)
[2018-10-02] MEDS: PHENYLEPHRINE INJ 160 MG in SODIUM CHLORIDE 0.9% 234 ML IV PRN ×2 (00:30→06:15)
[2018-10-02] MEDS: methylPREDNISolone SOD SUC 40 MG/1 ML VIAL IV SCH ×3 (00:37→15:45)
[2018-10-02] MEDS: PROPOFOL 1,000 MG/100 ML BOTTLE IV SCH ×2 (02:48→15:45)
[2018-10-02] MEDS ORDERED: PHENYLEPHRINE DRIP 40 MG/250 ML PREMIX IV ONE (05:16)
[2018-10-02 05:18] LABS: ABG Base Excess -3.6 MMOL/L (-2.5-2.5); ABG HCO3 19.6 MMOL/L (20-26); ABG Oxygen Saturation 98.1 % (95-100); ABG PH 7.447 (7.35-7.45); ABG TCO2 20.5 MMOL/L (23-27); Allen Test Positive; Pt O2 Delivery Device Ventilator
[2018-10-02 05:22] LABS: Basophils % 0.1 % (0.0-0.8); Eosinophils % 0.1 % (0.00-10.9); Hematocrit 30.3 VOL% (35.7-47.0); Hemoglobin 10.1 GM/DL (12.0-16.0); Immature Granulocytes % 1.2 %; Immature Granulocytes Absolute 0.18 #; Lymphocytes # 1.6 10*3/uL (1.4-4.0); Lymphocytes % 10.5 % (21.3-54.2); Mean Corpuscular HGB Conc 33.3 GM/DL (32-36); Mean Corpuscular Hemoglobin 27 PG (27-34); Mean Platelet Volume 10.4 FL (9.6-12.0); Monocytes # 0.7 10*3/uL (0.11-0.8); Monocytes % 4.3 % (1.7-12.7); NRBC # 0.39 10*3/uL; Neutrophils # 12.7 10*3/uL (1.4-7.4); Neutrophils % 83.8 % (38.7-73.9); Red Blood Count 3.74 MC/CUMM (3.8-5.5); Red Cell Distribution Width 20.6 % (9.3-17.3); White Blood Count 15.2 T/CUMM (4-12)
[2018-10-02 05:41] LABS: Calcium 8.9 MG/DL (8.5-10.1); Potassium 3.7 MMOL/L (3.5-5.1)
[2018-10-02 05:48] LABS: Platelet Count 36 T/CUMM (130-400)
[2018-10-02] MEDS: LEVOTHYROXINE 25 MCG TABLET PO SCH (06:21)
[2018-10-02 06:23] LABS: Eosinophils 1 % (0-10); Lymphocytes 11 % (20-55); Nucleated Red Blood Cells 5 (0-5); Platelet Estimate Decreased; Segmented Neutrophils 84 % (50-85); Total Cells Counted 100
[2018-10-02 06:24] LABS: Polychromasia Few
[2018-10-02] MEDS: CALCIUM ACETATE 667 MG CAPSULE PO SCH ×3 (08:13→17:11)
[2018-10-02] MEDS: FAMOTIDINE 20 MG TABLET PO SCH (09:27)
[2018-10-02] MEDS: MIDODRINE 5 MG TABLET PO SCH ×3 (09:27→21:11)
[2018-10-02] MEDS: NOREPINEPHRINE 16 MG in SODIUM CHLORIDE 0.9% 234 ML IV PRN (12:34)
[2018-10-03] MEDS: methylPREDNISolone SOD SUC 40 MG/1 ML VIAL IV SCH ×3 (00:07→15:40)
[2018-10-03] MEDS: PROPOFOL 1,000 MG/100 ML BOTTLE IV SCH ×2 (01:35→15:40)
[2018-10-03 04:13] LABS: ABG Base Excess 0.3 MMOL/L (-2.5-2.5); ABG HCO3 24.7 MMOL/L (20-26); ABG Oxygen Saturation 98.2 % (95-100); ABG PCO2 32.4 MM HG (35-48); ABG PH 7.468 (7.35-7.45); ABG TCO2 21.5 MMOL/L (23-27); Allen Test Positive; Pt O2 Delivery Device Ventilator
[2018-10-03 05:25] LABS: Basophils % 0.2 % (0.0-0.8); Eosinophils % 0.1 % (0.00-10.9); Hematocrit 26.5 VOL% (35.7-47.0); Hemoglobin 8.9 GM/DL (12.0-16.0); Immature Granulocytes % 0.6 %; Immature Granulocytes Absolute 0.08 #; Lymphocytes # 1.2 10*3/uL (1.4-4.0); Lymphocytes % 9.6 % (21.3-54.2); Mean Corpuscular HGB Conc 33.6 GM/DL (32-36); Mean Corpuscular Hemoglobin 27 PG (27-34); Mean Corpuscular Volume 81.3 FL (87-102); Mean Platelet Volume 10.8 FL (9.6-12.0); Monocytes # 0.5 10*3/uL (0.11-0.8); Monocytes % 3.6 % (1.7-12.7); NRBC # 0.32 10*3/uL; Neutrophils # 10.9 10*3/uL (1.4-7.4); Neutrophils % 85.9 % (38.7-73.9); Red Blood Count 3.26 MC/CUMM (3.8-5.5); Red Cell Distribution Width 20.7 % (9.3-17.3); White Blood Count 12.7 T/CUMM (4-12)
[2018-10-03 05:29] LABS: Platelet Count 31 T/CUMM (130-400)
[2018-10-03 05:50] LABS: Calcium 8.4 MG/DL (8.5-10.1); Osmolality,Calculated 283.8 MOS/KG (273-304)
[2018-10-03 05:58] LABS: Band Neutrophils 3 % (0-10); Hypochromasia 1+; Lymphocytes 4 % (20-55); Nucleated Red Blood Cells 4 (0-5); Platelet Estimate Decreased; Segmented Neutrophils 93 % (50-85); Total Cells Counted 100
[2018-10-03 05:59] LABS: Macrocytosis Slight
[2018-10-03] MEDS: LEVOTHYROXINE 25 MCG TABLET PO SCH (06:27)
[2018-10-03] MEDS: ALBUMIN 25% 12.5 GM in PREMIX 1 EACH IV PRN (09:00)
[2018-10-03] MEDS: FAMOTIDINE 20 MG TABLET PO SCH (09:00)
[2018-10-03] MEDS: MIDODRINE 5 MG TABLET PO SCH ×3 (09:00→20:30)
[2018-10-03] MEDS: CALCIUM ACETATE 667 MG CAPSULE PO SCH ×3 (09:12→16:03)
[2018-10-03] MEDS: NOREPINEPHRINE 16 MG in SODIUM CHLORIDE 0.9% 234 ML IV PRN (20:16)
[2018-10-04] MEDS: methylPREDNISolone SOD SUC 40 MG/1 ML VIAL IV SCH ×3 (00:15→17:03)
[2018-10-04] MEDS: PROPOFOL 1,000 MG/100 ML BOTTLE IV SCH ×2 (01:40→08:15)
[2018-10-04 04:25] LABS: Basophils % 0.1 % (0.0-0.8); Hematocrit 22.6 VOL% (35.7-47.0); Hemoglobin 7.4 GM/DL (12.0-16.0); Immature Granulocytes % 0.7 %; Immature Granulocytes Absolute 0.13 #; Lymphocytes # 0.9 10*3/uL (1.4-4.0); Lymphocytes % 4.6 % (21.3-54.2); Mean Corpuscular HGB Conc 32.7 GM/DL (32-36); Mean Corpuscular Hemoglobin 27 PG (27-34); Mean Corpuscular Volume 82.2 FL (87-102); Mean Platelet Volume 11.9 FL (9.6-12.0); Monocytes # 0.5 10*3/uL (0.11-0.8); Monocytes % 2.7 % (1.7-12.7); Neutrophils # 17.1 10*3/uL (1.4-7.4); Neutrophils % 91.9 % (38.7-73.9); Red Blood Count 2.75 MC/CUMM (3.8-5.5); Red Cell Distribution Width 20.6 % (9.3-17.3); White Blood Count 18.6 T/CUMM (4-12)
[2018-10-04 04:32] LABS: Platelet Count 32 T/CUMM (130-400)
[2018-10-04 04:43] LABS: Calcium 8.2 MG/DL (8.5-10.1); Osmolality,Calculated 283.7 MOS/KG (273-304); Potassium 3.8 MMOL/L (3.5-5.1)
[2018-10-04 05:16] LABS: Band Neutrophils 2 % (0-10); Hypochromasia 1+; Lymphocytes 3 % (20-55); Nucleated Red Blood Cells 9 (0-5); Segmented Neutrophils 93 % (50-85); Total Cells Counted 100
[2018-10-04 05:17] LABS: Anisocytosis 1+; Microcytosis 1+; Target Cells Few
[2018-10-04 05:18] LABS: Platelet Estimate Decreased; Spherocytes Slight
[2018-10-04] MEDS: LEVOTHYROXINE 25 MCG TABLET PO SCH (06:00)
[2018-10-04 08:35] LABS: ABG Base Excess 0.8 MMOL/L (-2.5-2.5); ABG HCO3 25.1 MMOL/L (20-26); ABG Oxygen Saturation 91.9 % (95-100); ABG PCO2 37.4 MM HG (35-48); ABG PH 7.432 (7.35-7.45); ABG PO2 64.5 MM HG (80-95); ABG TCO2 23.5 MMOL/L (23-27); Allen Test Positive; Pt O2 Delivery Device Ventilator
[2018-10-04] MEDS: CALCIUM ACETATE 667 MG CAPSULE PO SCH ×3 (08:45→16:50)
[2018-10-04] MEDS: MIDODRINE 5 MG TABLET PO SCH ×3 (09:02→20:13)
[2018-10-04] MEDS: FAMOTIDINE 20 MG TABLET PO SCH (09:02)
[2018-10-04] MEDS: MEROPENEM 500 MG in SODIUM CHLORIDE 0.9% 100 ML IV SCH ×2 (10:38→21:10)
[2018-10-04] MEDS: LINEZOLID INJ 600 MG in PREMIX 1 EACH IV SCH ×2 (11:09→21:44)
[2018-10-05] MEDS: PROPOFOL 1,000 MG/100 ML BOTTLE IV SCH (00:32)
[2018-10-05 03:02] LABS: ABG Base Excess 1.5 MMOL/L (-2.5-2.5); ABG HCO3 25.7 MMOL/L (20-26); ABG Oxygen Saturation 95.2 % (95-100); ABG PCO2 35.2 MM HG (35-48); ABG PH 7.463 (7.35-7.45); ABG PO2 72.1 MM HG (80-95); ABG TCO2 23.9 MMOL/L (23-27)
[2018-10-05 03:49] LABS: Basophils % 0.1 % (0.0-0.8); Eosinophils % 0.1 % (0.00-10.9); Hematocrit 18.7 VOL% (35.7-47.0); Immature Granulocytes % 0.6 %; Immature Granulocytes Absolute 0.12 #; Lymphocytes # 0.5 10*3/uL (1.4-4.0); Lymphocytes % 2.7 % (21.3-54.2); Mean Corpuscular HGB Conc 32.6 GM/DL (32-36); Mean Corpuscular Hemoglobin 27 PG (27-34); Mean Corpuscular Volume 83.1 FL (87-102); Monocytes # 0.3 10*3/uL (0.11-0.8); Monocytes % 1.6 % (1.7-12.7); NRBC # 0.21 10*3/uL; Neutrophils # 17.8 10*3/uL (1.4-7.4); Neutrophils % 94.9 % (38.7-73.9); Red Blood Count 2.25 MC/CUMM (3.8-5.5); Red Cell Distribution Width 20.8 % (9.3-17.3); White Blood Count 18.8 T/CUMM (4-12)
[2018-10-05 03:59] LABS: Hemoglobin 6.1 GM/DL (12.0-16.0)
[2018-10-05 04:00] LABS: Platelet Count 23 T/CUMM (130-400)
[2018-10-05 04:16] LABS: Calcium 7.9 MG/DL (8.5-10.1); Osmolality,Calculated 294.5 MOS/KG (273-304); Potassium 3.8 MMOL/L (3.5-5.1)
[2018-10-05 04:24] LABS: Hypochromasia 1+; Lymphocytes 2 % (20-55); Microcytosis 1+; Nucleated Red Blood Cells 1 (0-5); Pappenheimer Bodies Few; Platelet Estimate Decreased; Segmented Neutrophils 98 % (50-85); Total Cells Counted 100
[2018-10-05] MEDS: LEVOTHYROXINE 25 MCG TABLET PO SCH (06:10)
[2018-10-05] MEDS: MIDODRINE 5 MG TABLET PO SCH ×3 (09:25→20:15)
[2018-10-05] MEDS: CALCIUM ACETATE 667 MG CAPSULE PO SCH ×3 (09:26→16:50)
[2018-10-05] MEDS: methylPREDNISolone SOD SUC 40 MG/1 ML VIAL IV SCH ×3 (09:27→16:50)
[2018-10-05] MEDS: MEROPENEM 500 MG in SODIUM CHLORIDE 0.9% 100 ML IV SCH ×2 (09:27→21:18)
[2018-10-05] MEDS: PANTOPRAZOLE 40 MG VIAL IV SCH ×2 (09:27→20:16)
[2018-10-05] MEDS: FAMOTIDINE 20 MG TABLET PO SCH (09:28)
[2018-10-05] MEDS: LINEZOLID INJ 600 MG in PREMIX 1 EACH IV SCH ×2 (09:49→21:47)
[2018-10-05] MEDS ORDERED: SODIUM CHLORIDE 0.9% 1,000 ML IV PRN (10:32)
[2018-10-05] MEDS: INSULIN REGULAR 100 UNIT/ML SUBCUT SCH (18:15)
[2018-10-05 21:03] LABS: Hematocrit 26.2 VOL% (35.7-47.0); Hemoglobin 8.6 GM/DL (12.0-16.0)
[2018-10-06] MEDS: methylPREDNISolone SOD SUC 40 MG/1 ML VIAL IV SCH ×3 (00:08→16:23)
[2018-10-06] MEDS: INSULIN REGULAR 100 UNIT/ML SUBCUT SCH ×4 (00:08→18:04)
[2018-10-06] MEDS: PROPOFOL 1,000 MG/100 ML BOTTLE IV SCH (00:44)
[2018-10-06 03:50] LABS: ABG Base Excess 1.9 MMOL/L (-2.5-2.5); ABG HCO3 26.1 MMOL/L (20-26); ABG Oxygen Saturation 97.3 % (95-100); ABG PCO2 30.1 MM HG (35-48); ABG PH 7.516 (7.35-7.45); ABG PO2 80.4 MM HG (80-95); ABG TCO2 22.4 MMOL/L (23-27)
[2018-10-06 04:13] LABS: Basophils % 0.1 % (0.0-0.8); Hematocrit 25.8 VOL% (35.7-47.0); Hemoglobin 8.5 GM/DL (12.0-16.0); Immature Granulocytes % 0.8 %; Immature Granulocytes Absolute 0.07 #; Lymphocytes # 0.3 10*3/uL (1.4-4.0); Lymphocytes % 3.1 % (21.3-54.2); Mean Corpuscular HGB Conc 32.9 GM/DL (32-36); Mean Corpuscular Hemoglobin 27 PG (27-34); Mean Corpuscular Volume 80.4 FL (87-102); Mean Platelet Volume 11.5 FL (9.6-12.0); Monocytes # 0.2 10*3/uL (0.11-0.8); Monocytes % 2.1 % (1.7-12.7); NRBC # 0.17 10*3/uL; Neutrophils # 8.7 10*3/uL (1.4-7.4); Neutrophils % 93.9 % (38.7-73.9); Platelet Count 42 T/CUMM (130-400); Red Blood Count 3.21 MC/CUMM (3.8-5.5); Red Cell Distribution Width 19.4 % (9.3-17.3); White Blood Count 9.2 T/CUMM (4-12)
[2018-10-06 04:29] LABS: Osmolality,Calculated 299.8 MOS/KG (273-304); Potassium 3.7 MMOL/L (3.5-5.1)
[2018-10-06 04:34] LABS: Prealbumin 5.7 MG/DL (20-40)
[2018-10-06 05:02] LABS: Hypochromasia 1+; Lymphocytes 3 % (20-55); Microcytosis Slight; Nucleated Red Blood Cells 2 (0-5); Ovalocytes Slight; Platelet Estimate Decreased; Segmented Neutrophils 97 % (50-85); Total Cells Counted 100
[2018-10-06] MEDS: LEVOTHYROXINE 25 MCG TABLET PO SCH (06:01)
[2018-10-06] MEDS: CALCIUM ACETATE 667 MG CAPSULE PO SCH ×3 (09:46→16:23)
[2018-10-06] MEDS: MEROPENEM 500 MG in SODIUM CHLORIDE 0.9% 100 ML IV SCH ×2 (09:46→22:03)
[2018-10-06] MEDS: FAMOTIDINE 20 MG TABLET PO SCH (09:46)
[2018-10-06] MEDS: PANTOPRAZOLE 40 MG VIAL IV SCH ×2 (09:46→21:59)
[2018-10-06] MEDS: MIDODRINE 5 MG TABLET PO SCH ×3 (09:46→21:59)
[2018-10-06] MEDS: ALBUMIN 25% 12.5 GM in PREMIX 1 EACH IV PRN ×2 (09:47→11:17)
[2018-10-06] MEDS: LINEZOLID INJ 600 MG in PREMIX 1 EACH IV SCH ×2 (11:17→22:51)
[2018-10-07] MEDS: INSULIN REGULAR 100 UNIT/ML SUBCUT SCH ×5 (00:28→23:23)
[2018-10-07] MEDS: methylPREDNISolone SOD SUC 40 MG/1 ML VIAL IV SCH ×4 (00:35→23:41)
[2018-10-07 04:09] LABS: ABG Base Excess 2.6 MMOL/L (-2.5-2.5); ABG HCO3 26.7 MMOL/L (20-26); ABG Oxygen Saturation 96.3 % (95-100); ABG PCO2 29.6 MM HG (35-48); ABG PO2 75.5 MM HG (80-95); ABG TCO2 22.5 MMOL/L (23-27); Allen Test Positive; Pt O2 Delivery Device Ventilator
[2018-10-07] MEDS: PROPOFOL 1,000 MG/100 ML BOTTLE IV SCH ×3 (05:20→22:18)
[2018-10-07] MEDS: LEVOTHYROXINE 25 MCG TABLET PO SCH (07:11)
[2018-10-07 07:17] LABS: Basophils % 0.1 % (0.0-0.8); Hemoglobin 8.5 GM/DL (12.0-16.0); Immature Granulocytes % 0.8 %; Lymphocytes # 0.3 10*3/uL (1.4-4.0); Lymphocytes % 2.4 % (21.3-54.2); Mean Corpuscular Hemoglobin 27 PG (27-34); Mean Corpuscular Volume 80.1 FL (87-102); Mean Platelet Volume 11.3 FL (9.6-12.0); Monocytes # 0.2 10*3/uL (0.11-0.8); NRBC # 0.12 10*3/uL; Neutrophils # 11.2 10*3/uL (1.4-7.4); Neutrophils % 94.7 % (38.7-73.9); Red Blood Count 3.12 MC/CUMM (3.8-5.5); Red Cell Distribution Width 19.9 % (9.3-17.3); White Blood Count 11.8 T/CUMM (4-12)
[2018-10-07 07:19] LABS: Platelet Count 24 T/CUMM (130-400)
[2018-10-07 07:35] LABS: Lymphocytes 3 % (20-55); Segmented Neutrophils 93 % (50-85); Total Cells Counted 100
[2018-10-07 07:36] LABS: Hypochromasia 1+; Microcytosis Slight; Ovalocytes Slight; Platelet Estimate Decreased
[2018-10-07 07:43] LABS: Calcium 7.8 MG/DL (8.5-10.1); Osmolality,Calculated 287.1 MOS/KG (273-304); Potassium 3.4 MMOL/L (3.5-5.1)
[2018-10-07] MEDS ORDERED: SODIUM CHLORIDE 0.9% 1,000 ML IV PRN (09:14)
[2018-10-07] MEDS: MIDODRINE 5 MG TABLET PO SCH ×3 (09:34→20:01)
[2018-10-07] MEDS: PANTOPRAZOLE 40 MG VIAL IV SCH ×2 (09:34→20:01)
[2018-10-07] MEDS: FAMOTIDINE 20 MG TABLET PO SCH (09:34)
[2018-10-07] MEDS: CALCIUM ACETATE 667 MG CAPSULE PO SCH ×3 (09:34→16:33)
[2018-10-07] MEDS: MEROPENEM 500 MG in SODIUM CHLORIDE 0.9% 100 ML IV SCH (09:35)
[2018-10-07] MEDS: POTASSIUM CHLORIDE 20 MEQ/15 ML UDCUP PO PRN ×3 (09:35→16:33)
[2018-10-07] MEDS ORDERED: LIDOCAINE 2% 20 ML VIAL INFILTRAT ONE (09:36)
[2018-10-07] MEDS: LINEZOLID INJ 600 MG in PREMIX 1 EACH IV SCH ×2 (10:30→21:10)
[2018-10-07] MEDS ORDERED: MIDAZOLAM 10 MG/2 ML VIAL ONE (11:36)
[2018-10-07] MEDS ORDERED: PHENYLEPHRINE DRIP 40 MG/250 ML PREMIX IV ONE (12:15)
[2018-10-07] MEDS: CIPROFLOXACIN INJ 200 MG in PREMIX 1 EACH IV SCH (13:10)
[2018-10-07] MEDS: PIPERACILLIN/TAZOBACTAM 2,250 MG in SODIUM CHLORIDE 0.9% 100 ML IV SCH ×2 (13:11→19:55)
[2018-10-08] MEDS: PROPOFOL 1,000 MG/100 ML BOTTLE IV SCH (02:19)
[2018-10-08] MEDS: PIPERACILLIN/TAZOBACTAM 2,250 MG in SODIUM CHLORIDE 0.9% 100 ML IV SCH ×2 (04:37→13:16)
[2018-10-08 05:04] LABS: ABG Base Excess -0.9 MMOL/L (-2.5-2.5); ABG HCO3 22.3 MMOL/L (20-26); ABG Oxygen Saturation 95.3 % (95-100); ABG PCO2 31.4 MM HG (35-48); ABG TCO2 23.3 MMOL/L (23-27)
[2018-10-08 06:11] LABS: Basophils % 0.2 % (0.0-0.8); Hematocrit 25.4 VOL% (35.7-47.0); Hemoglobin 8.6 GM/DL (12.0-16.0); Immature Granulocytes % 0.9 %; Immature Granulocytes Absolute 0.12 #; Lymphocytes # 0.3 10*3/uL (1.4-4.0); Mean Corpuscular HGB Conc 33.9 GM/DL (32-36); Mean Corpuscular Hemoglobin 27 PG (27-34); Mean Corpuscular Volume 80.9 FL (87-102); Mean Platelet Volume 13.3 FL (9.6-12.0); Monocytes # 0.2 10*3/uL (0.11-0.8); Monocytes % 1.6 % (1.7-12.7); NRBC # 0.16 10*3/uL; Neutrophils # 12.2 10*3/uL (1.4-7.4); Neutrophils % 95.3 % (38.7-73.9); Red Blood Count 3.14 MC/CUMM (3.8-5.5); Red Cell Distribution Width 20.5 % (9.3-17.3); White Blood Count 12.8 T/CUMM (4-12)
[2018-10-08] MEDS: LEVOTHYROXINE 25 MCG TABLET PO SCH (06:20)
[2018-10-08 06:21] LABS: Platelet Count 35 T/CUMM (130-400)
[2018-10-08 06:39] LABS: Calcium 7.8 MG/DL (8.5-10.1); Osmolality,Calculated 289.2 MOS/KG (273-304); Potassium 4.1 MMOL/L (3.5-5.1)
[2018-10-08 06:44] LABS: Band Neutrophils 1 % (0-10); Hypochromasia 1+; Lymphocytes 6 % (20-55); Nucleated Red Blood Cells 2 (0-5); Ovalocytes Slight; Platelet Estimate Decreased; Segmented Neutrophils 93 % (50-85); Target Cells Few; Total Cells Counted 100
[2018-10-08 06:45] LABS: Microcytosis Slight
[2018-10-08] MEDS: INSULIN REGULAR 100 UNIT/ML SUBCUT SCH ×2 (07:30→13:56)
[2018-10-08] MEDS ORDERED: PHENYLEPHRINE DRIP 40 MG/250 ML PREMIX IV ONE (09:12)
[2018-10-08] MEDS: PANTOPRAZOLE 40 MG VIAL IV SCH (09:46)
[2018-10-08] MEDS: MIDODRINE 5 MG TABLET PO SCH (09:50)
[2018-10-08] MEDS: CALCIUM ACETATE 667 MG CAPSULE PO SCH ×2 (09:50→13:55)
[2018-10-08] MEDS: methylPREDNISolone SOD SUC 40 MG/1 ML VIAL IV SCH (09:50)
[2018-10-08] MEDS: ALBUMIN 25% 12.5 GM in PREMIX 1 EACH IV PRN ×2 (09:51→10:25)
[2018-10-08] MEDS: FAMOTIDINE 20 MG TABLET PO SCH (09:51)
[2018-10-08] MEDS: PHENYLEPHRINE DRIP 40 MG/250 ML PREMIX IV PRN (09:59)
[2018-10-08] MEDS: CIPROFLOXACIN INJ 200 MG in PREMIX 1 EACH IV SCH (12:00)
[2018-10-08] MEDS: LINEZOLID INJ 600 MG in PREMIX 1 EACH IV SCH (12:30)
[2018-10-08] MEDS ORDERED: ATROPINE 1 MG/10 ML SYRINGE IV ONE (12:45)
[2018-10-08] MEDS ORDERED: ATROPINE 1 MG/10 ML SYRINGE ONE (12:49)
[2018-10-08 14:05] VITALS: BP 102/59
== END 2018-10-08 14:52 | DRG 4 ==
LOC: EDUNIT# → N.ED 12:07 → N.5E 13:30 → SUATTDRO 13:49 → N.5E 13:49 → N.ICU 22:01
PROVIDERS: ADMIT Internal Medicine; ATTEND Internal Medicine